=== PATIENT | female | born 1955 | race Caucasian/White ===

== ENCOUNTER → 2019-11-12 13:17 | Outpatient (CLI) | payer MEDICARE, OTHER, SELFPAY ==
--- NOTE | ~2019-11-12 | MM_ITS ---
EXAMINATION: MM screening [facility] BI w vida HISTORY: Screening mammogram TECHNIQUE: Craniocaudal and mediolateral oblique 3-D tomosynthesis images were obtained and synthetic 2-D images were generated. CAD analysis was submitted and interpreted. COMPARISON: 10/25/2018, 03/22/2016, 01/06/2010 bilateral digital screening mammogram examinations BREAST PARENCHYMAL COMPOSITION: The breasts are almost entirely fatty. FINDINGS: There is no evidence of suspicious mass, calcification, or architectural distortion to sugg est malignancy in either breast. There has been no suspicious interval change. IMPRESSION: 1. No mammographic evidence of malignancy. 2. Recommend routine screening mammography in one year. BI-RADS Category 1: Negative Reviewed, dictated and finalized at location A.
== END ==
PROVIDERS: Visit Provider Physician Assistant
DX: Z12.31 Encounter for screening mammogram for malignant neoplasm of breast (principal)
CPT/HCPCS: 77063; 77067

== ENCOUNTER → 2020-11-19 13:25 | Outpatient (CLI) | payer MEDICARE, OTHER, SELFPAY ==
--- NOTE | ~2020-11-19 | MM_ITS ---
EXAMINATION: MM screening [facility] BI w vida HISTORY: Screening mammogram TECHNIQUE: Craniocaudal and mediolateral oblique 3-D tomosynthesis images were obtained and synthetic 2-D images were generated. CAD analysis was submitted and interpreted. COMPARISON: 11/12/2019, 10/25/2018, 03/22/2016 BREAST PARENCHYMAL COMPOSITION: There are scattered areas of fibroglandular density. FINDINGS: There is no evidence of suspicious mass, calcification, or architectural distortion to sugg est malignancy in either breast. There has been no suspicious interval change. IMPRESSION: 1. No mammographic evidence of malignancy. 2. Recommend routine screening mammography in one year. BI-RADS Category 1: Negative Reviewed, dictated and finalized at location A.
--- NOTE | ~2020-11-19 | DEXA_ITS ---
Bone Density Report Name: Edita Cyr Age: 65 Sex: Female Ethnicity: White Date of : 1955 Indication: osteopenia; height loss; prior fracture; hysterectomy; postmenopausal Referring Provider: Fidelian, Alirio Study: Bone densitometry was performed. Exam Date: November 19, 2020 Accession number: [id number] Bone Density: Region BMD T-score Z-score Classification AP Spine (L1-L4) 0.810 -2.2 -0.2 Osteopenia Femoral Neck (Left) 0.609 -2.2 -0.5 Osteopenia Total Hip (Left) 0.706 -1.9 -0.6 Osteopenia Femoral Neck (Right) 0.610 -2.2 -0.5 Osteopenia Total Hip (Right) 0.689 -2.1 -0.7 Osteopenia Total Hip Mean 0.698 -2.0 -0.7 Osteopenia World Health Organization criteria for BMD impression classify patients as: Normal (T-score at or above -1.0), Osteopenia (T-score between -1.0 and -2.5), or Osteoporosis (T-score at or below -2.5). 10-year Fracture Risk(1): Major Osteoporotic Fracture 18% Hip Fracture 3.4% Reported Risk Factors: [place] (), Neck BMD=0.610, BMI=22.7, previous fracture (1) FRAX(R) Version 3.08. Fracture probability calculated for an untreated patient. Fracture probability may be lower if the patient has received treatment. Previous Exams: Region Exam Age BMD T-score BMD Change BMD Change Date g/cm2 vs Baseline vs Previous AP Spine(L1-L4) 11/19/2020 65 0.810 -2.2 0.007 0.007 03/22/2016 60 0.803 -2.2 Total Hip(Left) 11/19/2020 65 0.706 -1.9 -0.056* -0.056* 03/22/2016 60 0.762 -1.5 Total Hip(Right) 11/19/2020 65 0.689 -2.1 -0.051* -0.051* 03/22/2016 60 0.740 -1.7 *Denotes significance at 95% confidence level, LSC for AP Spine = 0.022 g/cm2, LSC for Total Hip = 0.027 g/cm2 Clinical Information Provided by Patient: Has had a low trauma fracture Has used the following medications: Vitamin D Has the following medical conditions: Hysterectomy Patient maximum height was 64 Menopause Age: 38 Does not regularly consume dairy products Drinks caffeinated beverages Onset of menses at age 13 Number of children 0 Impression: The patient has low bone mass, based on the Total Spine T-score. The patient has an estimated ten-year risk of hip fracture of 3.4% and an estimated ten-year risk of major fracture of 18%, based on the WHO FRAX algorithm. The patient has risk factors, including: previous fracture. The BMD for the Total Hip(Left) decreased, changing by -0.
== END ==
PROVIDERS: PCP Physician Assistant; Visit Provider Physician Assistant
DX: Z12.31 Encounter for screening mammogram for malignant neoplasm of breast (principal); Z78.0 Asymptomatic menopausal state; M85.88 Other specified disorders of bone density and structure, other site; M85.852 Other specified disorders of bone density and structure, left thigh; M85.851 Other specified disorders of bone density and structure, right thigh
CPT/HCPCS: 77063; 77067; 77080

== ENCOUNTER → 2021-03-23 02:05 | Outpatient (CLI) | payer MEDICARE, OTHER, SELFPAY ==
[2021-03-24 02:21] LABS: SARS-CoV-2 RNA PCR Negative
== END ==
PROVIDERS: PCP Physician Assistant; Visit Provider Physician Assistant
DX: J01.90 Acute sinusitis, unspecified (principal); Z20.822 Contact with and (suspected) exposure to COVID-19
CPT/HCPCS: C9803; U0003; U0005

== ENCOUNTER → 2021-09-05 15:33 | Outpatient (CLI) | payer MEDICARE, OTHER, SELFPAY ==
--- NOTE | ~2021-09-05 | XR_ITS ---
EXAMINATION: XR chest 2V Exam Date/Time: 09/05/2021 15:52 CDT HISTORY: Cough Comparison: 03/31/2018. RESULT: Lines, tubes, and devices: None. Lungs and pleura: Clear. Cardiomediastinal silhouette: Stable cardiomediastinal silhouette. Other: No acute osseous or upper abdominal finding. IMPRESSION: No acute cardiopulmonary process. Reviewed, dictated and finalized at location K.
== END ==
PROVIDERS: PCP Physician Assistant; Visit Provider Physician Assistant
DX: R05.1 Acute cough (principal)
CPT/HCPCS: 71046

== ENCOUNTER → 2022-02-09 12:11 | Outpatient (CLI) | payer MEDICARE, OTHER, SELFPAY ==
--- NOTE | ~2022-02-09 | MM_ITS ---
EXAMINATION: MM screening [facility] BI w vida HISTORY: Screening TECHNIQUE: Craniocaudal and mediolateral oblique 3-D tomosynthesis images were obtained and synthetic 2-D images were generated. CAD analysis was submitted and interpreted. COMPARISON: Comparison to multiple prior studies sequentially, with oldest reviewed study dated 02/24. BREAST PARENCHYMAL COMPOSITION: There are scattered areas of fibroglandular density. FINDINGS: There is no evidence of suspicious mass, calcification, or architectural distortion to sugg est malignancy in either breast. There has been no suspicious interval change. IMPRESSION: 1. No mammographic evidence of malignancy. 2. Recommend routine screening mammography in one year. BI-RADS Category 1: Negative Reviewed, dictated and finalized at location A. TIC TILE LAYER
== END ==
PROVIDERS: PCP Physician Assistant; Visit Provider Physician Assistant
DX: Z12.31 Encounter for screening mammogram for malignant neoplasm of breast (principal)
CPT/HCPCS: 77063; 77067

== ENCOUNTER 2023-01-03 03:20 | Day surgery (SDC) | payer MEDICARE, OTHER, SELFPAY ==
[2022-10-04 09:04] VITALS: BMI 25.0
--- NOTE | 2022-10-04 10:54 | PC.NURSE ---
Patient informed us a cardiac event monitor was placed 10/03/[address] Degroot office. Anesthesia wants the event monitor completed and resulted prior to doing procedure, pt. called and was rescheduled to 11/13/2022. Dr. Garcia office notified
[2022-12-22 09:27] VITALS: BMI 25.0
--- NOTE | 2023-01-02 16:51 | PM.HPGS ---
History of Present Illness History of Present Illness Consent: Risks, benefits, and alternatives have been discussed and questions answered. Patient agrees to proceed with procedure. Chief complaint: dysphagia Narrative: Edita Cyr is a 67 year old female referred for EGD due to dysphagia. For several months she has had difficulty swallowing anything with bread and meat. She must cut it into small pieces. Otherwise the gets caught in her upper substernal area. If she tries to drink water to wash it down, the water may shoot back out. She has had no weight loss. She has had problems with acid reflux over the years. She had been on pantoprazole but a physician told her it was not good for her to stay on it. She currently is using famotidine. Occasionally night she will have regurgitation up into her throat. Review of Systems Review of Systems: All systems reviewed & are unremarkable except as noted in HPI and below PMFSH Family History Family History Mother Family history of lung cancer, Onset Age: 54 Father Acute myocardial infarction, Onset Age: 57 Social History Social History Smoking status: Former smoker Tobacco type: cigarettes Alcohol intake: current Alcohol use details: occasional wine Substance use type: does not use Living arrangements: with family Spiritual care concerns: No Meds Home Medications and Allergies Home Medications Medication Instructions Recorded Confirmed Type famotidine 40 mg tablet (Pepcid) 40 mg PO DAILY 03/27/19 12/22/22 History metoprolol succinate 25 mg 12.5 mg PO DAILY #45 tabs 07/13/22 01/03/23 Rx tablet,extended release 24 hr losartan 50 mg tablet 25 mg PO DAILY 12/22/22 12/22/22 History Allergies Allergy/AdvReac Type Severity Reaction Status Date / Time morphine Allergy Intermediate hives Verified 01/03/23 09:38 Exam Const: General: alert Orientation/consciousness: patient oriented x3 Resp: Auscultation: clear to auscultation bilaterally Cardio: Rhythm: regular rhythm GI: GI Palp: Yes Soft to palpation and No Tenderness to palpation present (GI) Neuro: General: patient oriented x3 Assessment and Plan Assessment and plan (1) Dysphagia: Code(s): R13.10 - Dysphagia, unspecified Status: Acute Assessment and Plan: EGD with possible biopsy or dilatation or cautery.
[2023-01-03 09:39] VITALS: BP 127/90; PULSE 75; RESP 16; TEMP 36.3; O2SAT 97; BMI 25.4
[2023-01-03] MEDS: LACTATED RINGERS 1,000 ML 150 ML IV CONT (09:53)
--- NOTE | 2023-01-03 10:22 | WPDANESEPPF ---
Anes - Initial Pre Proc Eval Procedure: Operation Date: 01/03/23 11:00 Proposed Procedures p Esophagogastroduodenoscopy - Jarad Staley MD Date/Time: 01/03/23 10:22 Surgeon: Jarad Staley MD Pre Op Diagnosis: dysphagia Patient Data Age: 67 Gender: F Height: 1.68 m Weight: 71.6 kg Last Vital Signs Temp 97.3 F L 01/03/23 09:39 Pulse 75 01/03/23 09:39 Resp 16 01/03/23 09:39 BP 127/90 01/03/23 09:39 Pulse Ox 97 01/03/23 09:39 O2 Del Method Room Air 01/03/23 09:39 Allergies Allergy/AdvReac Type Severity Reaction Status Date / Time morphine Allergy Intermediate hives Verified 01/03/23 09:38 Home Medications Medication Instructions Recorded Confirmed Type famotidine 40 mg tablet (Pepcid) 40 mg PO DAILY 03/27/19 12/22/22 History metoprolol succinate 25 mg 12.5 mg PO DAILY #45 tabs 07/13/22 01/03/23 Rx tablet,extended release 24 hr losartan 50 mg tablet 25 mg PO DAILY 12/22/22 12/22/22 History Patient hx anesthesia problems: none Family hx anesthesia problems: none Results Review: All pre-operative results and documents have been reviewed as part of the pre-operative evaluation. [facility] Family History Family History Mother Family history of lung cancer, Onset Age: 54 Father Acute myocardial infarction, Onset Age: 57 Social History Social History Smoking status: Former smoker Tobacco type: cigarettes Alcohol intake: current Alcohol use details: occasional wine Substance use type: does not use Living arrangements: with family Spiritual care concerns: No Anes - Eval Final PreProcedure Day of Procedure 01/03/23 10:22 Patient weight: normal Heart: regular rate and rhythm Lungs: clear to auscultation Airway: Mallampati scale class II Neurological: alert and oriented Last oral intake: >/= 8 hours ASA classification: III Emergent: no Anesthetic plan: proceed Anesthesia type and monitoring: general GIVS and standard monitoring Results Review: All pre-operative results and documents have been reviewed as part of the pre-operative evaluation. Informed Consent: The patient's anesthetic plan and its attendant risks and benefits were discussed with the patient/family/POA. Questions were solicited and answers provided to the satisfaction of the patient/family/POA.
[2023-01-03 11:17] VITALS: BP 98/52; PULSE 71; RESP 15; O2SAT 99
[2023-01-03 11:27] VITALS: BP 121/64; PULSE 74; RESP 20; O2SAT 99
[2023-01-03 11:37] VITALS: BP 128/67; PULSE 70; RESP 19; O2SAT 99
== END 2023-01-03 11:43 | disposition home or self-care (01) ==
PROVIDERS: PCP Physician Assistant; Visit Provider Internal Medicine Gastroenterology
PROC: 0DJ08ZZ Inspection of Upper Intestinal Tract, Via Natural or Artificial Opening Endoscopic (ICD-10-PCS; CPT 43235; principal; 2023-01-03 11:00)
DX: K22.2 Esophageal obstruction (principal); K44.9 Diaphragmatic hernia without obstruction or gangrene; K31.89 Other diseases of stomach and duodenum; Z87.891 Personal history of nicotine dependence; Z80.1 Family history of malignant neoplasm of trachea, bronchus and lung
CPT/HCPCS: 43249; 43239; 87081; 88305; C1726; J2704; J7120

== ENCOUNTER 2023-01-15 08:36 | Outpatient (CLI) | payer MEDICARE, OTHER, SELFPAY ==
--- NOTE | ~2023-01-15 | XR_ITS ---
EXAMINATION: XR UGIAC w barium swallow DATE: 01/15/2023 09:26 INDICATION: Difficulty swallowing post endoscopy with esophageal dilation 1 week prior. Acid reflux. TECHNIQUE: The patient drank thick barium, gas-producing crystals, and thin barium. Fluoroscopic spot radiographs of the hypopharynx, esophagus, stomach and proximal small bowel were obtained. Fluorosco py exposure time was 2.3 minutes. A total of 1199 fluoroscopic images were recorded. COMPARISON: None. FINDINGS: The pharynx is symmetric and without evidence of mass lesion or mucosal irregularity. Also note some contrast coating was seen in the posterior wall of the epiglottis consistent with laryngeal penetrati on without aspiration. The esophagus is normal without mass or stricture. Esophageal motility is norm al. Small sliding-type hiatal hernia with gastroesophageal junction 4 cm above the level of the diaph ragm. No stricture at the gastroesophageal junction which opens to 1.2 x 1.7 cm in diameter on AP and lateral images respectively. There is a single episode of gastroesophageal reflux with provocative m aneuvers. The stomach and proximal small bowel are normal. IMPRESSION: 1. Small sliding-type hiatal hernia with no evident stricture at the gastroesophageal junction. 2. Single episode of gastroesophageal reflux with provocative maneuvers. 2. Small amount of laryngeal penetration without aspiration. Could consider further evaluation with d edicated modified swallow study performed in conjunction with the department of speech pathology. Reviewed, dictated and finalized at location A. IMPRESSION: 1. Small sliding-type hiatal hernia with no evident stricture at the gastroesop hageal junction. 2. Single episode of gastroesophageal reflux with provocative maneuvers. 2. Small amount of laryngeal penetration without aspiration. Could consider fur ther evaluation with dedicated modified swallow study performed in conjunction with the department of speech pathology.
== END 2023-01-15 08:37 | disposition home or self-care (01) ==
LOC: ANHIMG 08:40
PROVIDERS: PCP Physician Assistant; Visit Provider Internal Medicine Gastroenterology
DX: R13.10 Dysphagia, unspecified (principal); K44.9 Diaphragmatic hernia without obstruction or gangrene; K21.9 Gastro-esophageal reflux disease without esophagitis
CPT/HCPCS: 74246

== ENCOUNTER → 2023-02-12 10:43 | Outpatient (CLI) | payer MEDICARE, SELFPAY ==
--- NOTE | ~2023-02-12 | DEXA_ITS ---
Bone Density Report Name: DWIGHT BRAUN Age: 67 Sex: Female Ethnicity: White Date of : 1955 Indication: osteopenia; height loss; prior fracture; hysterectomy; postmenopausal Referring Provider: [facility], CHIVO Study: Bone densitometry was performed. Exam Date: February 12, 2023 Accession number: [id number] Bone Density: Region BMD T-score Z-score Classification AP Spine (L1-L4) 0.842 -1.9 0.2 Osteopenia Femoral Neck (Left) 0.598 -2.3 -0.5 Osteopenia Total Hip (Left) 0.746 -1.6 -0.1 Osteopenia Femoral Neck (Right) 0.595 -2.3 -0.5 Osteopenia Total Hip (Right) 0.725 -1.8 -0.3 Osteopenia Total Hip Mean 0.736 -1.7 -0.2 Osteopenia World Health Organization criteria for BMD impression classify patients as: Normal (T-score at or above -1.0), Osteopenia (T-score between -1.0 and -2.5), or Osteoporosis (T-score at or below -2.5). 10-year Fracture Risk(1): Major Osteoporotic Fracture 20% Hip Fracture 4.3% Reported Risk Factors: [place] (), Neck BMD=0.595, BMI=25.9, previous fracture (1) FRAX(R) Version 3.08. Fracture probability calculated for an untreated patient. Fracture probability may be lower if the patient has received treatment. Previous Exams: Region Exam Age BMD T-score BMD Change BMD Change Date g/cm2 vs Baseline vs Previous AP Spine(L1-L4) 02/12/2023 67 0.842 -1.9 0.039* 0.031* 11/19/2020 65 0.810 -2.2 0.007 0.007 03/22/2016 60 0.803 -2.2 Total Hip(Left) 02/12/2023 67 0.746 -1.6 -0.016 0.040* 11/19/2020 65 0.706 -1.9 -0.056* -0.056* 03/22/2016 60 0.762 -1.5 Total Hip(Right) 02/12/2023 67 0.725 -1.8 -0.015 0.036* 11/19/2020 65 0.689 -2.1 -0.051* -0.051* 03/22/2016 60 0.740 -1.7 *Denotes significance at 95% confidence level, LSC for AP Spine = 0.022 g/cm2, LSC for Total Hip = 0.027 g/cm2 Clinical Information Provided by Patient: Has had a low trauma fracture Has used the following medications: Calcium, vit D included with Calcium Has the following medical conditions: Hysterectomy Patient maximum height was 66 Menopause Age: 41 Does not regularly consume dairy products Drinks caffeinated beverages Onset of menses at age 13 Number of children 0 Impression: The patient has low bone mass, based on the Left Femoral Neck T-score. The patient has an estimated ten-year r
--- NOTE | ~2023-02-12 | MM_ITS ---
EXAMINATION: MM screening [facility] BI w vida HISTORY: Screening mammogram TECHNIQUE: Craniocaudal and mediolateral oblique 3-D tomosynthesis images were obtained and synthetic 2-D images were generated. CAD analysis was submitted and interpreted. COMPARISON: 02/09/2022, 11/19/2020, 11/12/2019 bilateral screening mammogram examinations BREAST PARENCHYMAL COMPOSITION: The breasts are almost entirely fatty. FINDINGS: There is no evidence of suspicious mass, calcification, or architectural distortion to sugg est malignancy in either breast. There has been no suspicious interval change. IMPRESSION: 1. No mammographic evidence of malignancy. 2. Recommend routine screening mammography in one year. BI-RADS Category 1: Negative Reviewed, dictated and finalized at location A. LINE SUPERVISOR
== END ==
PROVIDERS: PCP Physician Assistant; Visit Provider Physician Assistant
DX: Z12.31 Encounter for screening mammogram for malignant neoplasm of breast (principal); Z78.0 Asymptomatic menopausal state; M85.88 Other specified disorders of bone density and structure, other site; M85.852 Other specified disorders of bone density and structure, left thigh; M85.851 Other specified disorders of bone density and structure, right thigh
CPT/HCPCS: 77063; 77067; 77080

== ENCOUNTER 2023-09-12 10:40 | Outpatient (CLI) | payer MEDICARE, OTHER, SELFPAY ==
--- NOTE | ~2023-09-12 | XR_ITS ---
EXAMINATION: [id number] DATE: 09/12/2023 11:06 INDICATION: Pleurodynia with lateral left rib pain TECHNIQUE: A frontal inspiratory view of the chest and 3 views of the left ribs were obtained. COMPARISON: Chest radiograph dated 09/05/2021 FINDINGS: No rib fractures identified. Chronic biapical pleural-parenchymal scarring. Unchanged left paracardia l fat pad along the left heart border. No new airspace opacities, pulmonary edema, pleural effusion o r pneumothorax. Heart size is normal. IMPRESSION: 1. No rib fracture or acute cardiopulmonary disease. Reviewed, dictated and finalized at location A.
== END 2023-09-12 10:41 ==
PROVIDERS: PCP Physician Assistant; Visit Provider Physician Assistant
DX: R07.81 Pleurodynia (principal)
CPT/HCPCS: 71101

== ENCOUNTER 2023-10-18 13:05 | Outpatient (CLI) | payer MEDICARE, OTHER, SELFPAY ==
[2023-10-18 13:46] LABS: Basophils Percent Auto 0.7 % (0.2-1.2); Eosinophils Absolute Auto 0.1 K/mm3 (0-0.3); Eosinophils Percent Auto 1.5 % (0-4.4); Hematocrit 38.5 % (37.0-47.0); Hemoglobin 12.4 g/dL (12.0-15.0); Immature Granulocyte Absolute 0.01 K/mm3 (0.00-0.031); Immature Granulocyte Percent A 0.2 % (0-0.5); Lymphocytes Absolute Auto 2.23 K/mm3 (0.9-3.2); Lymphocytes Percent Auto 37.4 % (18.3-44.2); Mean Corpuscular HGB Conc 32.2 g/dl (32-36); Mean Corpuscular Hemoglobin 29.7 pg (26-34); Mean Corpuscular Volume 92.3 fl (80-100); Mean Platelet Volume 9.8 fl (7.4-10.4); Monocytes Absolute Auto 0.5 K/mm3 (0.1-0.6); Monocytes Percent Auto 8.9 % (2.6-8.5); Neutrophils Absolute Auto 3.1 K/mm3 (1.3-6.7); Neutrophils Percent Auto 51.3 % (45.5-73.1); Platelet Count Result 287 k/mm3 (150-375); Red Blood Count 4.17 M/mm3 (4.2-5.4); Red Cell Distribution Width 14.1 % (11.5-14.5)
[2023-10-18 13:58] LABS: Alanine Aminotransferase 12 U/L (6-35); Albumin Level 4.4 g/dL (3.5-5.1); Alkaline Phosphatase 57 U/L (38-126); Anion Gap 8 mmol/L (4-12); Aspartate Amino Transferase 25 U/L (14-36); Bilirubin,Total 0.6 mg/dL (0.2-1.3); Blood Urea Nitrogen 13 mg/dL (7-17); Calcium 8.9 mg/dL (8.4-10.2); Carbon Dioxide 30 mmol/L (22-30); Chloride 100 mmol/L (98-107); Cholesterol 191 mg/dL (0-200); Estimated Glomerular Filt Rate 55; Glucose 87 mg/dL (65-110); HDL Direct 63 mg/dL; Potassium 4.7 mmol/L (3.4-5.0); Sodium 138 mmol/L (137-145); Triglycerides 89 mg/dL (<150)
[2023-10-18 14:09] LABS: LDL Cholesterol Direct 89 mg/dL
[2023-10-18 14:14] LABS: Free T4 Free Thyroxine 0.82 ng/mL (0.78-2.19)
[2023-10-18 14:29] LABS: Thyroid Stimulating Hormone 0.591 uIU/mL (0.465-4.680)
[2023-10-18 14:54] LABS: Hemoglobin A1C 5.5 % (<5.7)
== END 2023-10-18 13:06 | disposition home or self-care (01) ==
LOC: ANHLAB 13:11
PROVIDERS: PCP Physician Assistant; Visit Provider Physician Assistant
DX: R73.09 Other abnormal glucose (principal); Z79.899 Other long term (current) drug therapy; Z13.220 Encounter for screening for lipoid disorders
CPT/HCPCS: 36415; 80048; 80061; 80076; 83036; 84439; 84443; 85025

== ENCOUNTER 2024-01-31 00:55 | Day surgery (SDC) | payer MEDICARE, OTHER, SELFPAY ==
[2024-01-18 14:21] VITALS: BMI 24.7
[2024-01-31 10:15] VITALS: BP 120/74; PULSE 79; RESP 18; TEMP 36.1; O2SAT 98; BMI 24.6
[2024-01-31] MEDS: LACTATED RINGERS 1,000 ML 150 ML IV CONT (10:25)
--- NOTE | 2024-01-31 10:57 | P.PNAN_ITS ---
Anes - Initial Pre Proc Eval Procedure: Operation Date: 01/31/24 11:30 Proposed Procedures p Esophagogastroduodenoscopy - William Nascimento MD Date/Time: 01/31/24 10:57 Surgeon: William Nascimento MD Pre Op Diagnosis: dysphagia Patient Data Age: 68 Gender: F Height: 1.68 m Weight: 69.2 kg Last Vital Signs Temp 36.1 C L 01/31/24 10:15 Pulse 79 01/31/24 10:15 Resp 18 01/31/24 10:15 BP 120/74 01/31/24 10:15 Pulse Ox 98 01/31/24 10:15 O2 Del Method Room Air 01/31/24 10:15 Allergies Allergy/AdvReac Type Severity Reaction Status Date / Time morphine Allergy Intermediate hives Verified 01/31/24 10:13 Home Medications Medication Instructions Recorded Confirmed Type gabapentin 300 mg capsule 300 mg PO DAILY 09/14/23 01/31/24 History losartan 25 mg tablet 25 mg PO DAILY 09/14/23 01/31/24 History metoprolol succinate 25 mg See Rx Instructions .Route 10/08/23 01/31/24 Rx tablet,extended release 24 hr .COMPLEX #45 tabs omeprazole 20 mg capsule,delayed 20 mg PO BID 01/18/24 01/31/24 History release Patient hx anesthesia problems: none Family hx anesthesia problems: none Results Review: All pre-operative results and documents have been reviewed as part of the pre- operative evaluation. [facility] Family History Family History Mother Family history of lung cancer, Onset Age: 54 Father Acute myocardial infarction, Onset Age: 57 Social History Social History Smoking status: Former smoker Tobacco type: cigarettes Alcohol intake: current Alcohol use details: occasional wine Substance use type: does not use Do You Feel Safe in your Home?: Yes Lack of Transportation: No Lack of Food: Never True Current Housing: I Have Housing Concerned About Future Housing: No Difficulty Paying Gas/Electric Bills: No Difficulty Paying for Meds: No Currently Unemployed: No Education: High School Diploma/GED Difficulty w/ Childcare or Family Care: No Living arrangements: with family Spiritual care concerns: No Anes - Eval Final PreProcedure Day of Procedure 01/31/24 10:57 Patient weight: normal Heart: regular rate and rhythm Lungs: clear to auscultation Airway: Mallampati scale class II Neurological: alert and oriented Last oral intake: >/= 8 hours ASA classification: II Emergent: no Anesthetic plan: proceed Anesthesia type and monitoring: general GIVS and standard monitoring Results Review: All pre-operative results and documents have been reviewed as part of the pre-operative evaluation. Informed Consent: The patient's anesthetic plan and its attendant risks and benefits were discussed with the patient/family/POA. Questions were solicited and answers provided to the satisfaction of the patient/family/POA.
--- NOTE | 2024-01-31 10:58 | PM.IMHP ---
H&P: HPI History of Present Illness Date/Time: 01/31/24 10:58 Chief Complaint: Dysphagia Narrative: this patient has been suffering from intermittent dysphagia for several years. In December last year she underwent EGD Where a Schatzki ring was found and dilated with a balloon 18-20 mm. She did well until 3 months ago when she started to have dysphagia again, exclusively with solid foods. She is here for EGD. Review of Systems Review of Systems: All systems reviewed & are unremarkable except as noted in HPI and below PMFSH Family History Family History Mother Family history of lung cancer, Onset Age: 54 Father Acute myocardial infarction, Onset Age: 57 Social History Social History Smoking status: Former smoker Tobacco type: cigarettes Alcohol intake: current Alcohol use details: occasional wine Substance use type: does not use Do You Feel Safe in your Home?: Yes Lack of Transportation: No Lack of Food: Never True Current Housing: I Have Housing Concerned About Future Housing: No Difficulty Paying Gas/Electric Bills: No Difficulty Paying for Meds: No Currently Unemployed: No Education: High School Diploma/GED Difficulty w/ Childcare or Family Care: No Living arrangements: with family Spiritual care concerns: No Meds Home Medications and Allergies Home Medications Medication Instructions Recorded Confirmed Type gabapentin 300 mg capsule 300 mg PO DAILY 09/14/23 01/31/24 History losartan 25 mg tablet 25 mg PO DAILY 09/14/23 01/31/24 History metoprolol succinate 25 mg See Rx Instructions .Route 10/08/23 01/31/24 Rx tablet,extended release 24 hr .COMPLEX #45 tabs omeprazole 20 mg capsule,delayed 20 mg PO BID 01/18/24 01/31/24 History release Allergies Allergy/AdvReac Type Severity Reaction Status Date / Time morphine Allergy Intermediate hives Verified 01/31/24 10:13 Vital Signs Vital Signs - 24 hr 01/31/24 10:15 Temperature 97 F L Pulse Rate 79 Respiratory Rate 18 Blood Pressure 120/74 Pulse Oximetry 98 Oxygen Delivery Room Air Exam Const: General: cooperative and healthy appearing Resp: Effort & Inspection: normal respiratory effort and able to speak in complete sentences Auscultation: clear to auscultation bilaterally Cardio: Rate: regular rate Rhythm: regular rhythm GI: Inspection: normal to inspection GI Palp: No No hepatosplenomegaly present Auscultation: normal bowel sounds Rectal Exam: deferred Skin: General skin exam: normal color Psych: Appearance: grossly normal Mental Status: mental status grossly normal Assessment and Plan Assessment and plan (1) Dysphagia: Code(s): R13.10 - Dysphagia, unspecified Status: Acute Assessment and Plan: The patient is deemed a good candidate for the procedure. Consent signed. Will proceed. If a ring is found, will dilate it with a Arnett dilator.
[2024-01-31] MEDS: BENZOCAINE (*SP) 60 ML SPRAY CAN (HURRICAINE) 1 SPRAY MUCOUS MEM (11:06)
[2024-01-31 11:20] VITALS: BP 97/87; PULSE 73; RESP 20; O2SAT 97
[2024-01-31 11:30] VITALS: BP 96/54; PULSE 72; RESP 14; O2SAT 96
[2024-01-31 11:40] VITALS: BP 109/61; PULSE 62; RESP 13; O2SAT 96
== END 2024-01-31 12:08 | disposition home or self-care (01) ==
PROVIDERS: PCP Physician Assistant; Visit Provider Internal Medicine Gastroenterology
PROC: 0DJ08ZZ Inspection of Upper Intestinal Tract, Via Natural or Artificial Opening Endoscopic (ICD-10-PCS; CPT 43235; principal; 2024-01-31 11:30)
DX: K21.00 Gastro-esophageal reflux disease with esophagitis, without bleeding (principal); K29.30 Chronic superficial gastritis without bleeding; K44.9 Diaphragmatic hernia without obstruction or gangrene; Z87.891 Personal history of nicotine dependence; Z80.1 Family history of malignant neoplasm of trachea, bronchus and lung; Z82.49 Family history of ischemic heart disease and other diseases of the circulatory system
CPT/HCPCS: 43239; 88305; J2003; J2704; J7120

== ENCOUNTER 2024-02-15 10:42 | Outpatient (CLI) | payer MEDICARE, OTHER, SELFPAY ==
--- NOTE | ~2024-02-15 | MM_ITS ---
EXAMINATION: MM screening [facility] BI w vida HISTORY: Screening mammogram, family history of breast cancer in her sister. TECHNIQUE: Craniocaudal and mediolateral oblique 3-D tomosynthesis images were obtained and synthetic 2-D images were generated. CAD analysis was submitted and interpreted. COMPARISON: 02/12/2023, 02/09/2022, 11/19/2020 BREAST PARENCHYMAL COMPOSITION:Not Dense. There are scattered areas of fibroglandular density. FINDINGS: No suspicious mass, calcification, or architectural distortion are identified in either maricruz ast to suggest malignancy. There has been no suspicious interval change. IMPRESSION: No mammographic evidence of malignancy. Recommend routine screening mammography in one year. BI-RADS Category 1: Negative Reviewed, dictated and finalized at location . GE PUMP OPERATOR
== END 2024-02-15 10:43 | disposition home or self-care (01) ==
LOC: MICIMG 10:43
PROVIDERS: PCP Physician Assistant; Visit Provider Physician Assistant
DX: Z12.31 Encounter for screening mammogram for malignant neoplasm of breast (principal)
CPT/HCPCS: 77063; 77067

== ENCOUNTER 2024-03-17 06:56 | Outpatient (CLI) | payer MEDICARE, OTHER, SELFPAY ==
--- NOTE | ~2024-03-17 | XR_ITS ---
EXAMINATION: XR barium swallow modified DATE: 03/17/2024 08:25 INDICATION: Dysphagia. TECHNIQUE: The patient was given barium-containing material of multiple consistencies to swallow by t he speech pathologist while I performed fluoroscopy. Fluoroscopy exposure time was 0.7 minutes. The n umber of fluoroscopy images saved to the PACS was 1. Dose-area product was 0.437 Gy-cm^2. FINDINGS: The oral stage, pharyngeal stage, and cervical/esophageal stage of the swallow are normal. IMPRESSION: 1. Normal modified barium swallow. 2. Please refer to the speech therapy report for recommendations. Reviewed, dictated and finalized at location [] [facility]
--- NOTE | 2024-03-17 09:00 | REHSTMBS ---
Assessment and note entered by Kiana Piper, DIRECTOR INSTRUMENTATION Modified Barium Swallow Evaluation ST Clinical Summary MODIFIED BARIUM SWALLOW This patient was seen for a Modified Barium Swallow study at the request of her physician. Patient was seen for a GI consult on 02/[address] Brito who reported patient has a past medical surgical history of dysphagia, Schatzki's ring, and hypertension. The following notes were made: The patient was last seen by Dr. Nascimento on 2023 for an EGD. She reports that she has been having swallowing difficulty for months prior to her EGD in December 2022. She states that every morning there for a while she would get a phlegm like sensation that would come up and once it came up she was good. She states that if she consumes dairy products the mucous and post nasal drainage is worse. She is on omeprazole daily which she feels in causing adverse side effects for her. She is normally only having reflux symptoms if she eats known GERD triggering foods. When breakthrough reflux occurs she typically uses p.r. n. famotidine or Gaviscon and symptoms resolved. She denies any frequent abdominal pain, nausea, vomiting, bloating, odynophagia, regurgitation, early satiety, unexplained weight loss, or appetite loss. She is having daily bowel movements that are formed and non urgent. Denies diarrhea, constipation, hematochezia, or melena. She denies any NSAID, aspirin, or anticoagulant use. She is a rare social drinker, nonsmoker, and denies marijuana use. Family history negative for CRC or IBD. Today the patient reports same complaints. Patient was viewed in the lateral position to the level of C5/C6. Patient was presented with thin liquid contrast medium per cup and per straw, pudding mixed with semi-solid contrast medium, and then francisco j cracker piece and fruit cocktail pieces, both coated with the semi-solid mixture. She exhibited adequate mastication and manipulation, and quick swallows with no evidence of penetration/aspiration and no significant residue. Results indicate patient's swallowing skills are within normal limits. She was instructed in the use of head flexion to prevent food/liquid/pills. She voiced understanding. She was also instructed to follow any and all guidelines concerning reflux given to her by her physician to prevent reflux from entering the throat and/or airway. She again voiced understanding. Thank you for this referral.
--- OUTSIDE RECORDS SUMMARY | 2024-03-24 06:36 | XMS_ITS | Data Portability ---
Author Organization [facility] ALYSHAPiedad Address [address] [facility] [place] [address] Care Team Providers Care Sound Effects Supervisor Name Role Phone BAY EUBANKSIE Primary Care Provider Unavailab le Assessment Encounter Date Assessment Date Assessment LastModified by Organization Details LastModified Time 07/18/2023 07/18/2023 Mammogram scheduled. Not available 07/18/2023 15:26:16 Plan of Treatment Reminders Order Date Submit Date Provider Last Modified By Organization Details Last Modified Time Details Appointments None recorded. Lab CBC w/ auto diff 2023 024 [facility] (Lab), [address] [place] [address], [address], 4 14:50:51 hepatic function panel, serum 2023 024 [facility] (Lab), [address] [place] [address], [address], 4 14:51:13 BMP, serum or plasma [address] [place] [address] (Lab), [address] [place] [address], [address], 4 14:52:13 TSH + free T4, serum 2023 024 [facility] (Lab), [address] [place] [address], [address], 4 14:51:49 lipid panel, serum 2023 024 [facility] (Lab), [address], [place], [address], 4 14:51:31 HbA1c (hemoglobi n A1c), blood 2023 [facility] (Lab), [address], [place], [address], 14:50:42 noninvasiv e colorectal cancer DNA + occult blood screening, QL, stool 2023 [facility] (Cologuard Orders Only), [address], [address], [place], [address], 18:14:04 Referral None recorded. Procedures None recorded. Surgeries None recorded. Imaging MAMMO, screening, digital, bilateral 2023 [facility], [address], [address], [place], [address], 4 12:53:05 Medication Orders amoxicilli n 875 mg tablet 2023 [id number], [address], [place], [place], [id number], 13:15:41 Patient TargetsNo targets recorded. Patient Instructions Encounter Date Encounter Id Patient Instructions Last Modified By Organization Details Last Modified Time 11/22/2023 [id number] A healthy lifestyle: care instructions Not available 11/22/2023 15:46:33 Medicare Wellnes s Preventive Checklist Not available 11/22/2023 15:46:33 Reason for Referral None Reported. Results Created Date Observation Date Name Description Value Unit Range Abnormal Flag Note LastModifiedBy Organization Detail LastModifiedTime 08/06/19 24 08/06/2023 COLOG UARD cologuard result reportable Negati ve negati ve normal NEGAT KWESI TEST RESUL T. A negat kwesi Colog uard resul t indic ates a low likel ihood that a color ectal cance r (CRC) or advan angela adeno ma (dominick omato us polyp s with more advan angela pre-m align ant featu res) is prese nt. The [facility] that a perso n with a negat kwesi Colog uard test has a color ectal cance r is less than 1 in 1500 (nega tive predi ctive value >99.9 %) or has an advan angela adeno ma is less than 5.3% (nega tive predi ctive value 94.7% ). These data are based on a prosp ectiv e cross -sect ional study of ,00 0 indiv idual s at [place] risk for color ectal cance r who were scree manuel with both Colog uard and colon oscop y. (Joseph Toussaint et al, N Engl J Med 2014; 370(1 4):12 86-12 97) The seymour l value (refe rence range ) for this assay is negat kwesi. COLOG UARD RE-SC REEENEIDA NG RECOM MENDA TION: Perio dic color ectal cance r scree isabelle is an impor tant part of preve ntive healt hcare for asymp tomat ic indiv idual s at [place] risk for color ectal cance r. Follo wing a negat kwesi Colog uard resul t, the Ameri can Cance r Socie ty and U.S. Multi -Soci ety Task Force scree isabelle guide lines recom mend a Colog uard re-sc reeni ng inter eva of 3 years . Refer ences : Ameri can Cance r Socie ty Guide line for Color ectal Cance r Scree isabelle: https ://kayleigh w.can cer.o rg/ca ncer/ colon -rect al-ca ncer/ detec tion- diagn osis- stagi ng/ac s-rec ommen datio ns.ht ml.; Rosales SIMEON, Esteban SORTO, Kristin FerrellK, Color ectal Cance r Scree isabelle: Recom menda tions for Physi cians and Patie nts from the U.S. Multi -Soci ety Task Force on Color ectal Cance r Hari walton , Am Mariaelena lemusnte rolog y 2017; 112:1 016-1 030. TEST DESCR IPTIO N: Ollie site algor ithmi c mohsen sis of stool DNA-b derrek vickers with hemog lobin immun oassa y. Quant itati ve value s of indiv idual bioma rkers are not repor table and are not assoc iated with indiv idual bioma rker resul t refer ence range s. Colog uard is inten ded for color ectal cance r scree isabelle of adult s of eithe r sex, 45 years or older , who are at [facility] for color ectal cance r (CRC) . Colog uard has been appro ana for use by the U.S. FDA. The perfo rmanc e of Colog uard was estab lishe d in a cross secti onal study of [facility] adult s aged 50-84 . Colog uard perfo rmanc e in patie nts ages 45 to 49 years was estim ated by sub-g roup mohsen sis of near- age group s. Colon oscop ies perfo rmed for a posit kwesi resul t may find as the most clini amy signi fican t lesio n: color ectal cance r [4.0% ], advan angela adeno ma (incl uding sessi le luis angel naomi polyp s great er than or equal to 1cm diame ter) [20%] or non- advan angela adeno ma [31%] ; or no color ectal neopl vin [45%] . These estim ates are deriv ed from a prosp ectiv e cross -sect ional scree isabelle study of 10,00 0 indiv idual s at [facility] risk for color ectal cance r who were scree manuel with both Colog uard and colon oscop y. (Joseph Delgado al, N Engl J Med 2014; 370(1 4):12 86-12 97.) Colog uard may produ ce a false negat kwesi or false posit kwesi resul t (no color ectal cance r or preca ncero us polyp prese nt at colon oscop y follo w up). A negat kwesi Colog uard test resul t does not guara ntee the absen ce of CRC or advan angela adeno ma (pre- cance r). The curre nt Colog uard scree isabelle inter eva is every 3 years . (Amer ican Cance r Socie ty and U.S. Multi -Soci ety Task Force ). Colog uard perfo rmanc e data in a 10,00 0 patie nt pivot al study using colon oscop y as the refer ence metho d can be acces sed at the follo wing locat ion: www.e xactl abs.c om/re sults . Addit ional descr iptio n of the Colog uard test proce ss, warni ngs and preca ution s can be found at www.c ologu ravin.c om. Not Available [facility] (Cologuard Orders Only) [address], [place], [address], 08/10/2023 18:14:03 09/13/19 24 09/12/2023 XR, ribs, unila teral , w/ PA chest No observ ation record ed. [facility] [address], [place], [address], 09/14/2023 12:46:25 02/15/20 24 02/15/2024 MAMMO , scree isabelle, digit al, bilat eral No observ ation record ed. [email or web address] [address], [place], [address], 02/18/2024 11:21:30 03/17/20 24 03/17/2024 shelby coffman ow study No observ ation record ed. [facility] [address], [place], [address], 03/20/2024 10:18:36 Result Notes None recorded. Problems Name Problem SNOMED Code Status Onset Date Resolution Date Notes Provider Name and Address Organization Details Recorded Time Benign essential hypertensio n 2575736 Active 2023 WESTLEY Etienne Attn: Harrison g,[address] [facility], [place], [place], [address] [place] [address], [place] - [facility] 4 13:36:52 Gastroesoph ageal reflux disease without esophagitis 720708762 Active 2023 WESTLEY Etienne Attn: Accountin g,[address] [facility], [place], [place], [address] [place] [address], [place] - [facility] 4 13:36:54 History of Schatzkis ring 5055478921900 9103 Active 2023 WESTLEY Etienne Attn: Harrison g,[address] [facility], [place], [place], [address] [place] [address], [place] - [facility] 4 13:36:55 Blood glucose outside reference range 159616635 Active 2023 WESTLEY Etienne Attn: Harrison cancino,[address] [facility], [place], [place], [address] [place] [address], [place] - [facility] 4 13:36:56 Long-term drug therapy Active 2023 WESTLEY Etienne Attn: Harrison cancino,[address] [facility], [place], [place], [address] [place] [address], [place] [facility] 4 13:36:58 Body mass index 25-29 - overweight 588855999 Active 2023 WESTLEY Etienne Attn: Harrison g,[address] [place], [place], [address] [place] [address], [place] [facility] 4 10:48:41 Administrat ion of pneumococca l vaccine Active 2023 WESTLEY Etienne Attn: Harrison g,[address] [place], [place], [address] [place] [address], [place] [facility] 4 10:48:41 Overweight 339840167 Active 2023 WESTLEY Etienne Attn: Harrison cancino,[address], [place], [address], [facility] - [facility] 10:48:43 Problem Notes None recorded. Procedures Surgical History Date Name Laterality Status Provider Name and Address Organization Details Recorded Time Appendectomy completed Roberto Deal MA [facility] 07/18/2023 15:42:18 hysterectomy completed Roberto Deal MA [facility] 07/18/2023 15:42:22 Imaging Results Imaging Date Name Status LastModified by Organiz ation Details LastModified Time 09/12/2023 XR, ribs, unilateral, w/ PA chest completed [facility] [address], [place], [address], 09/14/2023 12:46:25 02/15/2024 MAMMO, screening, digital, bilateral completed [email or web address] [address], [place], [address], 02/18/2024 11:21:30 03/17/2024 barium swallow study completed [address], [place], [address], 03/20/2024 10:18:36 Procedure Notes None recorded. Medical Equipment None Reported. Allergies Allergen ID Allergen Name Allergen Category Reaction Reaction Severity Criticality Documentation Date Start Date Code Code System Note Provider Name and Address Organization Details Recorded Time 556953 morphine medicatio n itching moderate low 07/11/2023 7052 RxNorm Julia Mascorro LPN null, [place] - [place] 11:37:35 Medications Name Sig Start Date Stop Date Status Note LastModified by Organization Details LastModified Time losartan 50 mg tablet TAKE 1 TABLET BY MOUTH DAILY active 1\2 tablet every day changed by cardio Not Available Not Available Not Available ketoconaz ole 2 % shampoo APPLY TOPICALL Y TO SCALP THREE TIMES WEEKLY 07/10 completed Not Available Not Available Not Available valacyclo vir 1 gram tablet TAKE 2 TABLETS BY MOUTH EVERY 12 HOURS FOR 1 DAY NEEDED 07/10 completed Not Available Not Available Not Available omeprazol e 40 mg capsule,d elayed release Take 1 capsule every day by oral route. 01/14 completed Not Available Not Available Not Available amoxicill in 875 mg tablet TAKE 1 TABLET BY MOUTH EVERY 12 HOURS 10/14 completed Not Available Not Available Not Available famotidin e 20 mg tablet TAKE 1 TABLET BY MOUTH TWICE DAILY active Not Available Not Available No t Available gabapenti n 300 mg capsule TAKE 1 CAPSULE BY MOUTH EVERY NIGHT AT BEDTIME active Not Available Not Available No t Available omeprazol e 20 mg capsule,d elayed release TAKE ONE CAPSULE BY MOUTH TWICE DAILY WITH MEALS active Not Available Not Available No t Available hydroxyzi ne HCl 25 mg tablet TAKE 1 TABLET BY MOUTH EVERY 8 HOURS NEEDED FOR ITCHING 11/21 completed Not Available Not Available Not Available metoprolo l succinate ER 25 mg tablet,ex tended release 24 hr TAKE 1/2 TABLET BY MOUTH DAILY active Not Available Not Available No t Available betametha sone dipropion ate 0.05 % lotion APPLY TOPICALL Y TO SCALP EVERY NIGHT AT BEDTIME NEEDED FOR FLARES DIRECTED 07/10 completed Not Available Not Available Not Available amoxicill in 875 mg-potass ium clavulana te 125 mg tablet TAKE 1 TABLET BY MOUTH EVERY 12 HOURS 07/17 completed Not Available Not Available Not Available azelaic acid 15 % topical gel APPLY TOPICALL Y TO THE AFFECTED AREA OF FACE EVERY MORNING active Not Available Not Available No t Available Vitals Date Recorded Body weight Respiratory rate Body mass index (BMI) Body height Heart rate Oxygen saturation Oxygen saturation in Arterial blood by Pulse oximetry Systolic blood pressure Diastolic blood pressure Provider Name and Address Organization Details Last Updated DateTime 4 99515.8 2 g 18 /min 27.7 kg/m2 159.39 cm 72 /min 97 % 97 % 130 mm[Hg] 82 mm[Hg] Roberto Deal MA [facility] 15:13:13 Date Recorded Systolic blood pressure Diastolic blood pressure Provider Name and Address Organization Details Last Updated DateTime 07/18/2023 124 mm[Hg] 80 mm[Hg] WESTLEY Etienne Attn: Accounting,[address] [facility], [place], [address], [facility] 07/18/2023 15:31:34 Date Recorded Body height Body mass index (BMI) Body weight Respiratory rate Oxygen saturation Oxygen saturation in Arterial blood by Pulse oximetry Heart rate Systolic blood pressure Diastolic blood pressure Provider Name and Address Organization Details Last Updated DateTime 4 159.39 cm 28 kg/m2 09516.2 9 g 18 /min 96 % 96 % 72 /min 150 mm[Hg] 88 mm[Hg] Roberto Deal MA [facility] 14:36:41 Date Recorded Systolic blood pressure Diastolic blood pressure Provider Name and Address Organization Details Last Updated DateTime 11/22/2023 140 mm[Hg] 80 mm[Hg] WESTLEY Etienne Attn: Accounting[address] [place], [address], [facility] 11/22/2023 15:39:05 Social History Question Answer Notes LastModified by Organizat ion Details LastModified Time Tobacco Smoking Status Former Smoker Quit over 2 years ago Celeste lundy, [facility] 11/22/2023 15:03:31 Do You Have An Advance Directive? Yes Information not available 11/22/2023 What Is Your Level Of Alcohol Consumption? Occasional Wine Once Or Twice A Month Information not available 11/22/2023 Are You Blind Or Do You Have Difficulty Seeing? No Glasses Information not available 07/18/2023 What Is Your Level Of Caffeine Consumption? Moderate Coffee Information not available 11/22/2023 In The 14 Days Before Symptom Onset, Have You Had Close Contact With A Laboratory-confir med COVID-19 While That Case Was Ill? No Information not available 07/18/2023 In The 14 Days Before Symptom Onset, Have You Had Close Contact With A Person Who Is Under Investigation For COVID-19 While That Person Was Ill? No Information not available 07/18/2023 Have You Been To An Area Known To Be High Risk For COVID-19? No Information not available 07/18/2023 Are You Currently Employed? No Retired Information not available 11/22/2023 Are You Deaf Or Do You Have Serious Difficulty Hearing? No Information not available 07/18/2023 What Type Of Diet Are You Following? REGULAR Information not available 07/18/2023 What Is The Highest Grade Or Level Of School You Have Completed Or The Highest Degree You Have Received? [id number] Information not available 11/22/2023 Are There Any Guns Present In Your Home? Yes Information not available 11/22/2023 In The Past 7 Days, How Many Days Did You Exercise? 7 Information not available 11/22/2023 On The Days When You Exercised, How Long Did You Exercise Each Day (in Minutes)? 45 Information not available 11/22/2023 How Intense Was Your Typical Exercise? Moderate (brisk Walking) Information not available 11/22/2023 In The Past 7 Days, How Much Pain Have You [place]? Some Information not available 11/22/2023 In General, Would You Say You Health Is: Good Information not available 11/22/2023 How Would You Describe The Condition Of Your Mouth And Teeth- Including False Teeth Or Dentures? Good Information not available 11/22/2023 Each Night, How Many Hours Of Sleep Do You Get? 5 Information no t available 11/22/2023 Has Anyone Ever Told You That You Snore? No Information not available 11/22/2023 In The Past 7 Days, How Often Have You [place] Sleepy In The Daytime? Always Information not available 11/22/2023 # Alcohol Drinks Per Week 0 Information not available 11/22/2023 What Was The Date Of Your Most Recent Tobacco Screening? 11/22/2023 Information not available 11/22/2023 What Is Your Current Pack Years? 20-29packyear s Information not available 11/22/2023 What Is Your Relationship Status? Information not available 07/18/2023 Do You Use Your Seat Belt Or Car Seat Routinely? Yes Information not available 07/18/2023 Do You Have Smoke And Carbon Monoxide Detectors In Your Home? Yes Information not available 07/18/2023 How Much Tobacco Do You Smoke? No Information not available 11/22/2023 Do You Feel Stressed (tense, Restless, Nervous, Or Anxious, Or Unable To Sleep At Night)? [id number] Information not available 07/18/2023 Do You Use Any Illicit Or Recreational Drugs? No Information not available 07/18/2023 Do You Use Sunscreen Routinely? No Information not available 07/18/2023 Has Tobacco Cessation Counseling Been Provided? No Information not available 11/22/2023 On What Date Was Tobacco Cessation Counseling Provided? 11/22/2023 Information not available 11/22/2023 Do You Or Have You Ever Used Any Other Forms Of Tobacco Or Nicotine? No Information not available 07/18/2023 Sex: Female Functional Status Question Answer Note LastModified by Organization D etails LastModified Time Are you able to care for yourself? Yes Information not available 07/18/2023 What is your exercise level? Moderate Information not available 11/22/2023 Mental Status None recorded. Family History Relationship Description Onset Age of this Age Resolved Age Notes LastModified by Organization Details LastModified Time Sister Malignant tumor of breast tcarterma Not available 2023 15:42:34 Sister Heart disease tcarterma Not available 2023 15:42:42 Father Heart disease tcarterma Not available 2023 15:42:42 Mother Malignant tumor of lung tcarterma Not available 2023 15:42:52 Medical History Condition Response Coronary Artery Disease N Other N High Blood Pressure Y Atrial Fibrillation N Kidney or Bladder Problems N Thyroid Problems N GI Problems N Depression N COPD Y Blood Clots N Have you had a mammogram in the last yea r? Y Skin Problems N Anemia N Heart Attack ([place]) N Anxiety Disorder N Diabetes N Muscle, Joint, or Bone Problems N Seizures/Epilepsy N Have you had a colonoscopy in the last 1 0 years? N Acid Reflux (GERD) Y Cancer N Stroke N Asthma N Allergies N Have you had a PSA blood test in the las t year? N High Cholesterol N Hepatitis N Liver Disease N Headaches N Heart Failure N Osteoporosis N Gynecological History Statement/Question Response Menses Monthly N If Post Menopausal, Age at Menopause 43 Current Control Method Other Obstetrics History GPAL:G 0 P 0 0 0 0 Immunizations Vaccine Type Date Status Note Provider Nam e and Address Organization Details Recorded Time Influenza, high-dose, quadrivalent, PF 1 completed Celeste [place], [place] [facility] 11/22/2023 14:15:45 Influenza, high-dose, quadrivalent, PF 0 completed Celeste [place] [facility] 11/22/2023 14:15:45 Influenza, high-dose, quadrivalent, PF 2 completed Celeste [place] [facility] 11/22/2023 14:15:45 Influenza, adjuvanted, quadrivalent, PF 3 completed Celeste [place] [facility] 11/22/2023 14:15:45 COVID-19, mRNA, LNP-S, PF, 30 mcg/0.3 mL dose 1 completed Celeste [place] [facility] 11/22/2023 14:15:45 COVID-19, mRNA, LNP-S, PF, 30 mcg/0.3 mL dose 1 completed Celeste [place] [facility] 11/22/2023 14:15:45 COVID-19, mRNA, LNP-S, PF, 30 mcg/0.3 mL dose 1 completed Celeste [place] [facility] 11/22/2023 14:15:45 COVID-19, mRNA, LNP-S, PF, 30 mcg/0.3 mL dose, rocio-sucrose 2 completed Celeste [place] [facility] 11/22/2023 14:15:45 COVID-19, mRNA, LNP-S, bivalent, PF, 30 mcg/0.3 mL dose 2 completed Celeste [place] [facility] 11/22/2023 14:15:45 COVID-19, mRNA, LNP-S, PF, rocio-sucrose, 30 mcg/0.3 mL 3 completed Celeste [place] [facility] 11/22/2023 14:15:45 pneumococcal polysaccharide PPV23 9 completed Celeste [place], [place] [facility] 11/22/2023 14:15:45 Influenza, high-dose, trivalent, PF 9 completed Celeste [place] [facility] 11/22/2023 14:15:45 Influenza, split virus, trivalent, PF 7 completed Celeste [place] [facility] 11/22/2023 14:15:45 Influenza, split virus, quadrivalent, PF 8 completed Celeste [place] [facility] 11/22/2023 14:15:45 Pneumococcal conjugate PCV20, polysaccharide QCL000 conjugate, adjuvant, PF 4 completed WESTLEY Etienne Attn: Accounting,[address] [place], [address], [facility] 11/26/2023 10:47:07 Past Encounters Encounter ID Performer Location Encounter Start Date Encounter Closed Date Diagnosis/Indication Diagnosis SNOMED-CT Code Diagnosis ICD10 Code [id number] WESTLEY Etienne [facility] [employer] [facility] [address] [place] [address] 07/18/2023 14:41:52 07/18/2023 16:10:31 Screening for malignant neoplasm of colon 862881391 Z12.11 Antibiotic -associated diarrhea 908793905 T36.95XA Acute maxi llary sinusitis 07391119 J01.00 Benign ess ential hypertension 1516205 I10 Gastroesop hageal reflux disease without esophagitis 312929611 K21.9 Long-term drug therapy 409005253 Z79.899 History of Schatzkis ring 6446660608 3459589 Z87.19 Cholesterol screening 27 9966308 Z13.220 Screening mammography 24 068097 Z12.31 Blood gluc ose outside reference range 427989800 R73.09 [id number] WESTLEY Etienne [facility] [employer] [facility] [place] [address] [place] [address] 11/22/2023 14:14:54 11/22/2023 16:20:55 Adult health examination 937495493 Z00.00 Overweight 928129702 E66 .3 Administra tion of pneumococcal vaccine 78382090 Z23 Body mass index 25-29 - overweight 821179005 Z68.28 Health Concerns Section Related Observation LastModified by Organization Detai ls LastModified Time None Recorded Concern Status LastModified by Organization Details LastModified Time None Recorded Advance Directives Directive Y: Payers Encounter Date Sequence Insurance Name Policy Number Policy Anthony Covered Member ID Anthony Member ID Guarantor Name 07/18/2023 1 [place] Edita Ger [id number] Edita Ger 07/18/2023 2 [employer] (MEDICARE SUPPLEMENT) Edita Ger [id number] Edita Ger 11/22/2023 1 [place] Edita Ger [id number] Edita Ger 11/22/2023 2 [employer] (MEDICARE SUPPLEMENT) Edita Ger [id number] Edita Ger Notes Date Note Type Note Provider Name and Address Organization Details Recorded Time 4 text/html HypertensionReported bypatient.Notes:stable on losartan 50mg daily . pt takes half tab.Reflux/GERDReported bypatient.Notes:having some breakthrough reflux on famotidine 20mg bid. pt. has been due for cologuard but state she wants to get other problems taken care of first before she has it scheduled.States that she isn't sure if she need something stronger then the famotidine, states that she also wants to discuss her antibiotic states that when she takes it, it gives her watery diarrhea and it gomes..States that she also has been getting pressure in her cheek bones as well as in her gums states she isn't sure where its coming from states that she has gotten this cough but isn't sure where it came from. States that she isn't sure if its coming from the medicine or the acid reflux.pt. also has been having green/thick mucus from sinuses. mild pain and congestion. no cough. WESTLEY Etienne Attn: Accounting,[address] [facility], [place], [address], [place] - [facility] 07/25/2023 13:37:23 08/29/202 4 text/html MAW 2Reported bypatient.Diet and Nutrition:healthy diet Fracture Risk:no sudden unexplained fractures;history of fractures(right knee cap in 2016) Concentration and Memory:no decreased concentrating ability; no memory lapses or loss; does not forget words Speech/Motor difficulties:no speech difficulties; no difficulty expressing formulated concepts; no difficulty with fine manipulative tasks; no difficulty writing/copying; no slowed reaction time; does not knock things over when trying to pick them up Hearing:no loss of hearing Vision:worse both distance and near(glasses) Activities of Daily Living:able to bathe with limited or no assistance; able to contol urination and bowels; able to dress with limited or no assistance; able to feed self with limited or no assistance; able to get out of chair or bed with limited or no assistance; able to groom with limited or no assistance; able to toilet with limited or no assistance Instrumental Activities of Daily Living:able to do house work with limited or no assistance; able to grocery shop with limited or no assistance; able to manage medications with limited or no assistance; able to manage money with limited or no assistance; able to prepare meals with limited or no assistance; able to use the phone with limited or no assistance Falls Risk Assessment:no frequent falls while walking; no fall in the past year; no fall since last visit; no dizziness/vertigo Home Safety:reviewed sun protection; no unsafe louie hazzards; no unsafe stairs; working smoke/CO detectors; practicing 'safer sex'; good lighting in the home;fire arms;does not have hand bars in the bathroom/shower WESTLEY Etienne Attn: Accounting,[address] [place], [id number], [facility] 11/26/2023 10:50:11 OBGyn Episode No OBEpisode recorded.
--- OUTSIDE RECORDS SUMMARY | 2024-03-24 06:36 | XMS_ITS | Data Portability ---
Author Organization [place] - [facility] OFFICE Address [address] [place] [address] Assessment Encounter Date Assessment Date Assessment LastModified by Organization Details LastModified Time 05/27/2019 05/27/2019 Discussed with patient findings, diagnosis, and prognosis. Discussed evaluation and treatment options including risks and benefits with patient, and patient expressed understanding. The following interventions were recommended: heart healthy low-fat, low-sodium diet, continue regular exercise, maintain appropriate weight, continue current medications, and medical follow-up as noted. [email or web address] Not available 05/27/2019 09:57:02 01/06/2020 01/06/2020 Discussed with patient findings, diagnosis, and prognosis. Discussed evaluation and treatment options including risks and benefits with patient, and patient expressed understanding. The following interventions were recommended: heart healthy low-fat, low-sodium diet, continue regular exercise, maintain appropriate weight, continue current medications, and medical follow-up as noted. Not available 01/05/2020 15:01:40 02/08/2021 02/08/2021 .scribed by Babita CHRISTY and examined by both Dr Oglesby plan [email or web address] by Dr Cash sims Not available 02/08/2021 15:18:37 Plan of Treatment Reminders Order Date Submit Date Provider Last Modified By Organization Details Last Modified Time Details Appointments None recorded. Lab None recorded. Referral None recorded. Procedures None recorded. Surgeries None recorded. Imaging None recorded. Medication Orders metoprolol succinate ER 25 mg tablet,exte nded release 24 hr 2020 021 [facility] #[id number], [address], [phone], 14:48:50 metoprolol succinate ER 25 mg tablet,exte nded release 24 hr 2020 021 [place] [facility] #[id number], [address], [place], [place], [phone], 15:20:06 Patient TargetsNo targets recorded. Patient Instructions Encounter Date Encounter Id Patient Instructions Last Modified By Organization Details Last Modified Time 05/27/2019 [id number] chest pain: care instructions [email or web address] Not available 05/27/2019 11:01:05 supraventricular tachycardia: care instructions Not available 05/27/2019 11:01:05 gastroesophageal reflux disease (GERD): care instructions [email or web address] Not available 05/27/2019 11:01:05 01/06/2020 [id number] chest pain: care instructions [email or web address] Not available 01/06/2020 13:07:02 supraventricular tachycardia: care instructions [email or web address] Not available 01/06/2020 13:07:02 gastroesophageal reflux disease (GERD): care instructions [email or web address] Not available 01/06/2020 13:07:02 02/16/2020 [id number] chest pain: care instructions [email or web address] Not available 02/16/2020 14:25:27 supraventricular tachycardia: care instructions [email or web address] Not available 02/16/2020 14:25:27 gastroesophageal reflux disease (GERD): care instructions [email or web address] Not available 02/16/2020 14:25:27 Exercise advised Low cholesterol diet advised Low sodium diet advised [email or web address] Not available 02/16/2020 14:15:37 Patient was seen and evaluated by Amber Gillis [facility]. Plan of care was discussed with collaborating physician and note cosigned by Dr. Bruno Castrejon. Not available 02/16/2020 15:15:35 07/26/2020 [id number] chest pain: care instructions [email or web address] Not available 07/26/2020 14:42:36 supraventricular tachycardia: care instructions [email or web address] Not available 07/26/2020 14:42:36 gastroesophageal reflux disease (GERD): care instructions [email or web address] Not available 07/26/2020 14:42:36 Exercise advised Low cholesterol diet advised Low sodium diet advised [email or web address] Not available 07/26/2020 14:42:19 Scribed by Kathie Gillis [facility] [email or web address] Not available 07/26/2020 14:42:25 02/08/2021 [id number] chest pain: care instructions [email or web address] Not available 02/08/2021 15:19:57 gastroesophageal reflux disease (GERD): care instructions [email or web address] Not available 02/08/2021 15:19:57 Exercise advised Low cholesterol diet advised Low sodium diet advised. [email or web address] Not available 02/08/2021 15:19:56 Reason for Referral None Reported. Results Created Date Observation Date Name Description Value Unit Range Abnormal Flag Note LastModifiedBy Organization Detail LastModifiedTime 05/27/19 20 05/27/2019 elect rocar diogr am No observ ation record ed. [email or web address] Not Available 05/26 17:13:09 01/06/20 20 01/06/2020 [facility] rocar diogr am No observ ation record ed. [email or web address] Not Available 01/06 11:29:39 01/06/20 20 01/06/2020 [facility] rocar diogr am No observ ation record ed. [email or web address] Not Available 2019 09:44:20 02/17/20 20 02/05/2020 tread mill nucle ar stres s test (PROC ) No observ ation record ed. [email or web address] Not Available 2019 11:27:47 08/03/19 21 07/26/2020 [facility] rocar diogr am No observ ation record ed. Not Available 08/02 10:44:45 02/12/20 21 02/08/2021 [facility] rocar diogr am No observ ation record ed. [email or web address] Not Available 2020 10:24:47 Result Notes Documentation Provider Name and Address Organization Details Recorded Time Cbc W/ Diff : 10/16/19:WBC 8.1,RBC 4.51,HGB 13.6,HCT 41.3,PLT 321. Lorin Reyes [facility], [place] - [facility] 10/18/2019 19:58:32 Lipid Panel, Blood : 10/22/20:WBC 6.3,RBC 4.17,HGB 12.8,HCT 37.6,PLT 299. 10/21/20:Na 138,K 4.7,Cl 103,Co2 24,Glu 91,Bun 13,Cr 0.8. 10/21/20:TC 196,TG 73,HDL 61,LDL 122. Lorin Reyes [place], [place] - [facility] 10/24/2020 15:02:09 Problems Name Problem SNOMED Code Status Onset Date Resolution Date Notes Provider Name and Address Organization Details Recorded Time Chest pain 47461709 Active 2018 Josh Floyd [facility], [place] - [facility] 9 15:47:13 Supraventricul ar tachycardia 9602244 Active 2018 Josh Floyd [facility], [facility] 9 15:54:53 Gastroesophage al reflux disease 023125015 Active 2018 Josh Velazquezan [facility], [place] - [facility] 9 16:21:56 Tobacco dependence syndrome 06991024 Active 2018 Halyoel Mcgee [facility], [place] - [facility] 9 14:38:17 Mixed hyperlipidemia 898090938 Active 2019 Josh Mariel [facility], [place] - [facility] 0 12:35:26 Problem Notes None recorded. Procedures Surgical History None recorded. Imaging Results Imaging Date Name Status LastModified by Organization Details LastModified Time 05/27/2019 electrocardiogram completed Informa tion not available 05/27/2019 17:13:09 01/06/2020 electrocardiogram completed [email or web address] Informa tion not available 01/07/2020 11:29:39 01/06/2020 electrocardiogram completed [email or web address] Informa tion not available 01/13/2020 09:44:20 02/05/2020 treadmill nuclear stress test (PROC) completed [email or web address] Information not available 02/17/2020 11:27:47 07/26/2020 electrocardiogram completed [email or web address] Informa tion not available 08/02/2020 10:44:45 02/08/2021 electrocardiogram completed [email or web address] Informa tion not available 02/11/2021 10:24:47 Procedure Notes None recorded. Medical Equipment None Reported. Allergies Allergen ID Allergen Name Allergen Category Reaction Reaction Severity Criticality Documentation Date Start Date Code Code System Note Provider Name and Address Organization Details Recorded Time 7462 morphine medicatio n rash severe Not available 04/08/2018 7052 RxNorm FAB PAMELLA [place], [place] - [facility] 9 15:13:21 Medications Name Sig Start Date Stop Date Status Note LastModified by Organization Details LastModified Time amoxicill in 500 mg capsule 07/26 completed Not Available Not Available Not Available prednison e 10 mg tablet active pt no longer takes 02/09/20 21 nj Not Available Not Available Not Available ketoconaz ole 2 % shampoo APPLY 1 APPLICAT ION 3 TIMES EVERY WEEK TO SCALP active pt no longer takes 02/09/20 21 nj Not Available Not Available Not Available azithromy shahida 250 mg tablet active Not Available Not Available No t Available famotidin e 40 mg tablet 11/21 completed pt not taking this at this time.[email or web address] 11/21/17 Not Available Not Available Not Available prednison e 20 mg tablet TAKE 2 TABLETS BY MOUTH EVERY DAY FOR 5 DAYS active Not Available Not Available No t Available famotidin e 20 mg tablet TAKE 1 TABLET BY MOUTH TWICE DAILY WITH MEALS active Not Available Not Available No t Available lorazepam 0.5 mg tablet 04/08 completed Not Available Not Available Not Available neomycin- polymyxin -dexameth 3.5 mg/mL-10, 000 unit/mL-0 .1% eye drops 02/15 completed pt not taking 01/15/20 Not Available Not Available Not Available diclofena c sodium 75 mg tablet,de layed release 02/15 completed pt not taking 01/15/20 Not Available Not Available Not Available metoprolo l succinate ER 25 mg tablet,ex tended release 24 hr TAKE 1/2 TABLET BY MOUTH EVERY DAY active Not Available Not Available No t Available clobetaso l 0.05 % scalp solution 02/15 completed pt not taking 01/15/20 Not Available Not Available Not Available cefdinir 300 mg capsule 04/08 completed Not Available Not Available Not Available betametha sone dipropion ate 0.05 % lotion 02/15 completed pt not taking 01/15/20 Not Available Not Available Not Available Asprin Ec Low Dose 81 mg tablet,de layed release Take 1 tablet every day by oral route. 05/26 completed pt is not taking this medicati on 05/27/19 20 sm Not Available Not Available Not Available Vitamin D 2000 qd active pt no longer takes 02/09/20 21 nj Not Available Not Available Not Available Calcium 600 with Vitamin D3 active Not Available Not Available Not Available metoprolo l succ 25 mg-hydroc hlorothia zide 12.5 mg tablet,ex t.rel 24 hr Take 1 tablet every day by oral route at dinner. 07/26 completed Not Available Not Available Not Available Virtussin AC 10 mg-100 mg/5 mL oral liquid 04/08 completed Not Available Not Available Not Available BinaxNOW COVID-19 Ag Self Test kit TEST DIRECTED TODAY active Not Available Not Available No t Available aspirin 81 mg capsule Take 1 capsule every day by oral route. active pt is unsure whether she should take it or not 02/09/20 21 nj Not Available Not Available Not Available Vitals Date Recorded Body height Body mass index (BMI) Body weight Heart rate Respiratory rate Oxygen saturation Oxygen saturation in Arterial blood by Pulse oximetry Systolic blood pressure Diastolic blood pressure Provider Name and Address Organization Details Last Updated DateTime 0 167.64 cm 22.6 kg/m2 11426.9 3 g 82 /min 18 /min 98 % 98 % 130 mm[Hg] 80 mm[Hg] Frida Jacinta [facility] 0 09:58:37 Date Recorded Body height Body mass index (BMI) Body weight Heart rate Oxygen saturation Oxygen saturation in Arterial blood by Pulse oximetry Body temperature Systolic blood pressure Diastolic blood pressure Provider Name and Address Organization Details Last Updated DateTime 0 167.64 cm 22 kg/m2 98579.5 6 g 84 /min 97 % 97 % 97.4 [degF] 128 mm[Hg] 75 mm[Hg] Bruno Adams [facility] 0 11:49:04 Date Recorded Body height Body mass index (BMI) Body weight Heart rate Oxygen saturation Oxygen saturation in Arterial blood by Pulse oximetry Provider Name and Address Organization Details Last Updated DateTime 0 167.64 cm 22.2 kg/m2 57737.6 7 g 111 /min 97 % 97 % Maki Davis [facility] 0 13:59:48 Date Recorded Systolic blood pressure Diastolic blood pressure Provider Name and Address Organization Details Last Updated DateTime 02/16/2020 120 mm[Hg] 72 mm[Hg] Amber Gillis [employer] 02/16/2020 14:17:20 Date Recorded Body height Body mass index (BMI) Body weight Heart rate Respiratory rate Oxygen saturation Oxygen saturation in Arterial blood by Pulse oximetry Systolic blood pressure Diastolic blood pressure Provider Name and Address Organization Details Last Updated DateTime 1 167.64 cm 21.6 kg/m2 31021.3 8 g 94 /min 16 /min 96 % 96 % 124 mm[Hg] 74 mm[Hg] Shameka Mullins [facility] 1 14:00:54 Date Recorded Body height Body mass index (BMI) Body weight Heart rate Oxygen saturation Oxygen saturation in Arterial blood by Pulse oximetry Provider Name and Address Organization Details Last Updated DateTime 1 167.64 cm 22.6 kg/m2 75765.6 5 g 76 /min 96 % 96 % JERILYN HURST [facility] 1 14:23:42 Social History Question Answer Notes LastModified by Organizat ion Details LastModified Time Tobacco Smoking Status Former Smoker Not Available [facility] 01/27/2020 03:30:42 What Is Your Level Of Alcohol Consumption? Occasional [id number] Information not available 01/27/2020 What Is Your Level Of Caffeine Consumption? Occasional [id number] Information not available 01/27/2020 Do You Or Have You Ever Used E-cigarettes Or Vape? 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 05/21/2018 [id number] Information not available 01/27/2020 How Many Children Do You Have? 0 [id number] Information not available 01/27/2020 Do You Or Have You Ever Used Smokeless Tobacco? Former Smokeless Tobacco User [id number] Information not available 01/27/2020 Sex: Unknown Functional Status None recorded. Mental Status None recorded. Family History Relationship Description Onset Age of this Age Resolved Age Notes LastModified by Organization Details LastModified Time Sister Heart disease [email or web address] Not available 2018 14:47:35 Father Myocardial infarction [email or web address] Not available 04/08 14:48:16 Unspecified Relation Diabetes mellitus [email or web address] Not available 2018 14:48:24 Notes:Father with [place] in late 50s. Medical History Condition Response Hyperlipidemia Y Arrhythmia Y GERD/Reflux Y Gynecological HistoryNo gynecological history recorded. Obstetrics History GPAL:G 0 P 0 0 0 0 Past Encounters Encounter ID Performer Location Encounter Start Date Encounter Closed Date Diagnosis/Indication Diagnosis SNOMED-CT Code Diagnosis ICD10 Code [id number] Josh Floyd [facility] [address] [place] [address] 04/08/2018 14:10:40 04/08/2018 16:24:42 Chest pain 38437487 R07.2 Supraventr icular tachycardia 0243043 I47.1 Gastroesop hageal reflux disease 089251223 K21.9 [id number] Josh Garcia Office [address] [place] [address] 05/21/2018 10:18:21 05/21/2018 11:22:22 Chest pain 14438150 R07.2 Supraventr icular tachycardia 0656767 I47.1 Gastroesop hageal reflux disease 439826716 K21.9 [id number] Josh Garcia Office [address] [place] [address] 11/21/2018 15:32:02 11/21/2018 17:13:25 Chest pain 63641658 R07.2 Supraventr icular tachycardia 7500178 I47.1 Gastroesop hageal reflux disease 508683407 K21.9 [id number] Josh Garcia Office [address] [place] [address] 05/27/2019 09:41:00 05/27/2019 11:02:19 Chest pain 90261489 R07.2 Supraventr icular tachycardia 7852939 I47.1 Gastroesop hageal reflux disease 279372452 K21.9 [id number] Josh Triana Office [address] [place] [address] 01/06/2020 11:33:49 01/06/2020 13:10:51 Chest pain 58636033 R07.2 Supraventr icular tachycardia 3712842 I47.1 Gastroesop hageal reflux disease 400626697 K21.9 Mixed hyperlipidemia 267 378407 E78.2 [id number] Amber Gillis [facility] [place] [address] 02/16/2020 13:53:14 02/16/2020 15:15:51 Chest pain 65804716 R07.2 Supraventr icular tachycardia 4110611 I47.1 Gastroesop hageal reflux disease 959940440 K21.9 Mixed hyperlipidemia 267 989426 E78.2 [id number] Amber Gillis [facility] Office [facility] [place] [address] 07/26/2020 13:51:43 07/26/2020 14:43:19 Chest pain 89788999 R07.2 Supraventr icular tachycardia 4068678 I47.1 Gastroesop hageal reflux disease 478778751 K21.9 Mixed hyperlipidemia 267 239073 E78.2 [id number] Bruno Castrejon MD [facility] [address] [place] [address] 02/08/2021 13:55:07 02/08/2021 15:25:17 Chest pain 64211061 R07.2 Supraventr icular tachycardia 0084635 I47.1 Gastroesop hageal reflux disease 126224191 K21.9 Mixed hyperlipidemia 267 432716 E78.2 Essential hypertension 48935245 I10 Health Concerns Section Related Observation LastModified by Organization Detai ls LastModified Time None Recorded Concern Status LastModified by Organization Details LastModified Time None Recorded Advance Directives Directive None Recorded Payers Encounter Date Sequence Insurance Name Policy Number Policy Anthony Covered Member ID Anthony Member ID Guarantor Name 05/27/2019 1 [place] Edita Cyr [id number] Edita Cyr 05/27/2019 2 [employer] (MEDICARE SUPPLEMENT) Edita Cyr [id number] Edita Cyr 01/06/2020 1 [place] Edita Cyr [id number] Edita Cyr 01/06/2020 2 [employer] (MEDICARE SUPPLEMENT) Edita Ger [id number] Edita Cyr 02/16/2020 1 [place] Cyr [id number] Edita Cyr 02/16/2020 2 [employer] (MEDICARE SUPPLEMENT) Edita Ger [id number] Edita Cyr 07/26/2020 1 [place] Cyr [id number] Edita Cyr 07/26/2020 2 [employer] (MEDICARE SUPPLEMENT) Edita Cyr [id number] Edita Cyr 02/08/2021 1 [place] Edita Cyr [id number] Edita Cyr 02/08/2021 2 [employer] (MEDICARE SUPPLEMENT) Edita Ger [id number] Edita Cyr Notes Date Note Type Note Provider Name and Address Organization Details Recorded Time 05/27/2019 text/html 05/27/19 cc: follow-up chest pain. 63 year-old white woman with history of former tobacco dependence (quit 09/2015, 25 pack-year), hiatal hernia, GERD, arthritis, presents in follow-up with a chief complaint of chest pain. Patient was admitted [facility] 03/31/18 with left chest pressure. Had negative trop-I. Telemetry revealed normal sinus rhythm with asymptomatic possible brief run of SVT up to 180 bpm vs. artifact. Had 04/01/18 STRESS ECHO: Stress echocardiogram negative for inducible ischemia at 85% MPHR. Reduced functional capacity. Technically difficult study with limited views. Reports less GERD with less spicy food and less soda. Had increased GERD 02/2019 with nausea, heartburn, dysphagia, emesis. Reports episode 04/05/2018 of central chest burning for 10 min. with sour taste in mouth and nausea with gradual relief with burping, Tums, and soda. Some associated left arm and left neck discomfort. Patient's pantoprazole was discontinued 1 year ago. Home BP < 130/80. Consumed 4 cups of coffee and 20 oz Coke daily, but has decreased. {{No known history of coronary artery disease.* History of coronary artery disease reported.}} {{No history of previous myocardial infarction.* History of previous myocardial infarction reported.}} {{No history of heart failure.* History of heart failure reported.}} {{No known valvular heart disease.* History of valvular heart disease reported.}} {{History of arrhythmia reported as above.# No known arrhythmia. History of arrhythmia reported.}} {{Patient reports feeling well overall.* Patient reports not feeling well sometimes.}} {{Patient is active, exercising regularly, with bike and floor exercises.# Patient is active, but is not exercising regularly. Patient is active, exercising regularly. Patient is not very active, and is not exercising.}} {{No chest pain.* Chest pain reported. Exertional chest pain reported. Non-exertion al chest pain reported. Chest pain reported which is only sometimes associated with activity.}} {{No arm pain.* Arm pain reported.}} {{No neck pain. Neck pain reported.*}} {{Rare nausea with spicy foods but no vomiting reported.# No nausea and vomiting. Nausea and vomiting reported.}} {{No diaphoresis.* Diaphore sis reported.}} {{No shortness of breath at rest.* Shortness of breath at rest reported.}} {{Dyspnea on exertion reported, minimal, stable.# No dyspnea on exertion. Dyspnea on exertion reported.}} {{No fatigue.* Fatigue reported.}}{{No orthopnea.* Orthopnea reported.}} {{No PND.* PND reported.}} {{No leg swelling.* Leg swelling reported.}} {{No palpitation.* Palpitat ion reported.}} {{Dizziness reported, rare, postural.# No dizziness. Dizziness reported.}} {{No syncope .* Syncope reported.}} {{No pre-syncope.* Pre-sync ope reported.}} {{No claudication.* Claudic ation reported.}} {{No major bleeding events.* Major bleeding event reported.}} {{No side effects from medications.* Side effects from medications reported.}} {{Complete ROS negative except as stated in the HPI. Complete ROS negative except as stated in the HPI and ROS.*}} Results from this visit, or from the past: 04/24/18: TSH 0.922 03/31/18: HB 12.8, HT 38.7003/31/17: TC 184 ,TG 69 ,HDL 49 ,LDL 6044703/31/18: NA 137 ,K 4.1, CL 104 ,CO2 27, GLU 98, BUN 11, CR 0.8,03/31/18: LDL 109, Mg 2.1, K 4.1 EKG 11/21/2018 NSR. Possible right anterior enlargement. EKG 04/08/18 : NSR WNL .05/09/18 Holter Monitor: Unremarkable holter. NSR. Rare PVC's but not correlated to symptoms. Rare PAC's but not correlated with symptoms. 05/09/18 Holter Monitor: Unremarkable holter. NSR. Rare PVC's but not correlated to symptoms. Rare PAC's but not correlated with symptoms.Attachment available 04/01/18 STRESS ECHO: Stress echocardiogram negative for inducible ischemia at 85% MPHR. RXR, chest 03-31-2018 03/31/18 CHEST 2 VIEW: No acute cardiopulmonary educed functional capacity. Technically difficult study with limited views. Josh Floyd [place], [place] - [facility] 05/27/2019 11:01:29 01/06/2020 text/html 01/06/20 cc: follow-up chest pain. 64 year-old white woman with history of former tobacco dependence (quit 09/2015, 25 pack-year), hyperlipidemia, hiatal hernia, GERD, arthritis, presents in follow-up with a chief complaint of chest pain. Pt last seen 05/27/19. Today reports feeling fine recently. Reports she feels exercising has been helping her feel better, doing at least 30 min of walking every day, also rides recumbent bike. Patient was admitted [facility] 03/31/18 with left chest pressure. Had negative trop-I. Telemetry revealed normal sinus rhythm with asymptomatic possible brief run of SVT up to 180 bpm vs. artifact. Had 04/01/18 STRESS ECHO: Stress echocardiogram negative for inducible ischemia at 85% MPHR. Reduced functional capacity. Technically difficult study with limited views. Reports less GERD with less spicy food and less soda. Had increased GERD 02/2019 with nausea, heartburn, dysphagia, emesis. Reports episode 04/05/2018 of central chest burning for 10 min. with sour taste in mouth and nausea with gradual relief with burping, Tums, and soda. Some associated left arm and left neck discomfort. Patient's pantoprazole was discontinued 1 year ago. Home BP < 130/80. Consumed 4 cups of coffee and 20 oz Coke daily, but has decreased. {{No known history of coronary artery disease.* History of coronary artery disease reported.}} {{No history of previous myocardial infarction.* History of previous myocardial infarction reported.}} {{No history of heart failure.* History of heart failure reported.}} {{No known valvular heart disease.* History of valvular heart disease reported.}} {{History of arrhythmia reported as above.# No known arrhythmia. History of arrhythmia reported.}} {{Patient reports feeling well overall.* Patient reports not feeling well sometimes.}} {{Patient is active, exercising regularly, with bike and floor exercises.# Patient is active, but is not exercising regularly. Patient is active, exercising regularly. Patient is not very active, and is not exercising.}} {{Chest pain reported, left chest ache, not necessarily exertional.# No chest pain. Chest pain reported. Exertional chest pain reported. Non-exertion al chest pain reported. Chest pain reported which is only sometimes associated with activity.}} {{No arm pain.* Arm pain reported.}} {{No neck pain. Neck pain reported.*}} {{Rare nausea with spicy foods but no vomiting reported.# No nausea and vomiting. Nausea and vomiting reported.}} {{No diaphoresis.* Diaphore sis reported.}} {{No shortness of breath at rest.* Shortness of breath at rest reported.}} {{Dyspnea on exertion reported, with walking 10 min. on occasion.# No dyspnea on exertion. Dyspnea on exertion reported.}} {{No fatigue.* Fatigue reported.}}{{No orthopnea.* Orthopnea reported.}} {{No PND.* PND reported.}} {{No leg swelling.* Leg swelling reported.}} {{No palpitation.* Palpitat ion reported.}} {{Dizziness reported, rare, postural.# No dizziness. Dizziness reported.}} {{No syncope .* Syncope reported.}} {{No pre-syncope.* Pre-sync ope reported.}} {{No claudication.* Claudic ation reported.}} {{No major bleeding events.* Major bleeding event reported.}} {{No side effects from medications.* Side effects from medications reported.}} {{Complete ROS negative except as stated in the HPI. Complete ROS negative except as stated in the HPI and ROS.*}} Results from this visit, or from the past: 10/16/19 BMP: NA 140, K 4.7, CL 101, CO2 25, GLU 117, BUN 15, CR 0.:Mg 2.1.10/16/19: LIPID: TC 200, TR 147, HDL 59, LDL 0400510/16/19:WBC 8.1,RBC 4.51,HGB 13.6,HCT 41.3,PLT 321. 04/24/18: TSH 0.922 03/31/18: HB 12.8, HT 38.7003/31/17: TC 184 ,TG 69 ,HDL 49 ,LDL 6372003/31/18: NA 137 ,K 4.1, CL 104 ,CO2 27, GLU 98, BUN 11, CR 0.8,03/31/18: LDL 109, Mg 2.1, K 4.1 05/27/2019 : EKG ; Sinus Rhythm inverted T wave in AVLEKG 11/21/2018 NSR. Possible right anterior enlargement. EKG 04/08/18 : NSR WNL .05/09/18 Holter Monitor: Unremarkable holter. NSR. Rare PVC's but not correlated to symptoms. Rare PAC's but not correlated with symptoms. 05/09/18 Holter Monitor: Unremarkable holter. NSR. Rare PVC's but not correlated to symptoms. Rare PAC's but not correlated with symptoms.Attachment available 04/01/18 STRESS ECHO: Stress echocardiogram negative for inducible ischemia at 85% MPHR. RXR, chest 03-31-2018 03/31/18 CHEST 2 VIEW: No acute cardiopulmonary educed functional capacity. Technically difficult study with limited views. Josh lundy, [place] - [facility] 01/06/2020 13:07:23 02/16/2020 text/html 02/16/2020 cc: chest pain 64 year-old white woman with history of former tobacco dependence (quit 09/2015, 25 pack-year), hyperlipidemia, hiatal hernia, GERD, arthritis, presents in follow-up. She was last seen in clinic 1 month ago on 01/06/20. Since then she reports feeling well. She had a TDM 02/05/2020 which was negative and revealed normal LV systolic function. Reports she feels exercising has been helping her feel better, doing at least 30 min of walking every day, also rides recumbent bike. No chest pain. No shortness of breath at rest. No dyspnea on exertion. No orthopnea. No PND's. No dizziness. No palpitation. No syncope or near syncope. No leg swelling. No nausea and vomiting. No side effects from medications. Patient was admitted [facility] 03/31/18 with left chest pressure. Had negative trop-I. Telemetry revealed normal sinus rhythm with asymptomatic possible brief run of SVT up to 180 bpm vs. artifact. Had 04/01/18 STRESS ECHO: Stress echocardiogram negative for inducible ischemia at 85% MPHR. Reduced functional capacity. Technically difficult study with limited views. Reports less GERD with less spicy food and less soda. Had increased GERD 02/2019 with nausea, heartburn, dysphagia, emesis. Reports episode 04/05/2018 of central chest burning for 10 min. with sour taste in mouth and nausea with gradual relief with burping, Tums, and soda. Some associated left arm and left neck discomfort. Patient's pantoprazole was discontinued 1 year ago. Home BP < 130/80. Results from this visit, or from the past: 10/16/19 BMP: NA 140, K 4.7, CL 101, CO2 25, GLU 117, BUN 15, CR 0.:Mg 2.1.10/16/19: LIPID: TC 200, TR 147, HDL 59, LDL 0434410/16/19:WBC 8.1,RBC 4.51,HGB 13.6,HCT 41.3,PLT 321.04/24/18: TSH 0.922 03/31/18: HB 12.8, HT 38.7 03/31/17: TC 184 ,TG 69 ,HDL 49 ,LDL 20276: NA 137 ,K 4.1, CL 104 ,CO2 27, GLU 98, BUN 11, CR 0.8,03/31/18: LDL 109, Mg 2.1, K 4.1 EKG 01/06/2020 Sinus rhythm P right atrial overload P>0.25 mV in II aVF P=106 ms. QRS RSR in V1 and V2 ST-T normal. Conclusion possibly abnormal ECG05/27/2019 : EKG ; Sinus Rhythm inverted T wave in AVLEKG 11/21/2018 NSR. Possible right anterior enlargement. EKG 04/08/18 : NSR WNL . 05/09/18 Holter Monitor: Unremarkable holter. NSR. Rare PVC's but not correlated to symptoms. Rare PAC's but not correlated with symptoms. 04/01/18 STRESS ECHO: Stress echocardiogram negative for inducible ischemia at 85% MPHR. RXR, chest 03-31-2018 03/31/18 CHEST 2 VIEW: No acute cardiopulmonary educed functional capacity. Technically difficult study with limited views. Amber Gillis [facility], [place] - [facility] 02/16/2020 15:15:47 07/26/2020 text/html 07/26/2020 cc: chest pain 64-year-old white woman with history of former tobacco dependence (quit 09/2015, 25 pack-year), hyperlipidemia, hiatal hernia, GERD, arthritis, presents in follow-up. She was last seen in clinic 6 months ago on 02/16/2020. Since then she reports feeling well with no new complaints. She previously stopped taking metoprolol 12.5 mg daily d/t complaints of fatigue. She reports after her last visit she began taking it again with resolution of palpitations and chest pain. She has felt very well with the current dose. She had a TDM 02/05/2020 which was negative and revealed normal LV systolic function Has been active but not exercising. No chest pain. No shortness of breath at rest. No dyspnea on exertion. No orthopnea. No PND. No dizziness. No palpitation. No syncope or near syncope. No leg swelling. No nausea and vomiting. No side effects from medications. Patient was admitted [facility] 03/31/18 with left chest pressure. Had negative trop-I. Telemetry revealed normal sinus rhythm with asymptomatic possible brief run of SVT up to 180 bpm vs. artifact. Had 04/01/18 STRESS ECHO: Stress echocardiogram negative for inducible ischemia at 85% MPHR. Reduced functional capacity. Technically difficult study with limited views. Reports less GERD with less spicy food and less soda. Had increased GERD 02/2019 with nausea, heartburn, dysphagia, emesis. Reports episode 04/05/2018 of central chest burning for 10 min. with sour taste in mouth and nausea with gradual relief with burping, Tums, and soda. Some associated left arm and left neck discomfort. Patient's pantoprazole was discontinued 1 year ago. Home BP < 130/80. Results from this visit, or from the past: 10/16/19 BMP: NA 140, K 4.7, CL 101, CO2 25, GLU 117, BUN 15, CR 0.:Mg 2.1.10/16/19: LIPID: TC 200, TR 147, HDL 59, LDL 7020710/16/19:WBC 8.1,RBC 4.51,HGB 13.6,HCT 41.3,PLT 321.04/24/18: TSH 0.922 03/31/18: HB 12.8, HT 38.7 03/31/17: TC 184 ,TG 69 ,HDL 49 ,LDL 9707003/31/18: NA 137 ,K 4.1, CL 104 ,CO2 27, GLU 98, BUN 11, CR 0.8,03/31/18: LDL 109, Mg 2.1, K 4.1 EKG 01/06/2020 Sinus rhythm P right atrial overload P>0.25 mV in II aVF P=106 ms. QRS RSR in V1 and V2 ST-T normal. Conclusion possibly abnormal ECG05/27/2019 : EKG ; Sinus Rhythm inverted T wave in AVLEKG 11/21/2018 NSR. Possible right anterior enlargement. EKG 04/08/18 : NSR WNL . 02/05/20 TDM: Negative stress test for ischemia. Normal LV systolic function. No previous study to compare. LVEF >60%. Exercise tolerance: Below average. 05/09/18 Holter Monitor: Unremarkable holter. NSR. Rare PVC's but not correlated to symptoms. Rare PAC's but not correlated with symptoms. 04/01/18 STRESS ECHO: Stress echocardiogram negative for inducible ischemia at 85% MPHR. RXR, chest 03-31-2018 03/31/18 CHEST 2 VIEW: No acute cardiopulmonary educed functional capacity. Technically difficult study with limited views. Amberramonita Gillis [facility] 07/26/2020 14:48:27 02/08/2021 text/html 02/08/21 CC : Cardiac follow up 65 -year-old white woman with history of former tobacco dependence (quit 09/2015, 25 pack-year), hyperlipidemia, hiatal hernia, GERD, and arthritis, presents for 6 month follow-up. She was last seen in the clinic on 07/26/20 , since then she has been well she is aggravated and my bp is probably up no chest pain no palpitations She denies ER visits and hospitalizations since she was last seen. Today reports:Denies chest pain.Denies shortness of breath at rest. Has mild dyspnea on exertion.No orthopnea. No PNDs.Denies heart palpitations.Denies dizziness. Denies syncope or near syncope.No ankle or leg edema.No major bleeding events.No reported side effects from medications. Taking medications as prescribed with no missed doses.Denies snoring, daytime somnolence and AM headache. *Last LDL was 122 done on 10/20/20 .Pt dose not takes any statins.:TC 196,TG 73,HDL 61,LDL 122. Previously She previously stopped taking metoprolol 12.5 mg daily d/t complaints of fatigue.She reports after her last visit she began taking it again with resolution of palpitations and chest pain. She has felt very well with the current dose. *She had a TDM 02/05/2020 which was negative and revealed normal LV systolic function Patient was admitted [facility] 03/31/18 with left chest pressure. Had negative trop-I. Telemetry revealed normal sinus rhythm with asymptomatic possible brief run of SVT up to 180 bpm vs. artifact. *Had 04/01/18 STRESS ECHO: Stress echocardiogram negative for inducible ischemia at 85% MPHR. Reduced functional capacity. Technically difficult study with limited views. Reports less GERD with less spicy food and less soda. Had increased GERD 02/2019 with nausea, heartburn, dysphagia, emesis. Reports episode 04/05/2018 of central chest burning for 10 min. with sour taste in mouth and nausea with gradual relief with burping, Tums, and soda. Some associated left arm and left neck discomfort. Patient's pantoprazole was discontinued 1 year ago. Results from this visit, or from the past:10/16/19 BMP: NA 140, K 4.7, CL 101, CO2 25, GLU 117, BUN 15, CR 0.:Mg 2.1.10/16/19: LIPID: TC 200, TR 147, HDL 59, LDL 8852010/16/19:WBC 8.1,RBC 4.51,HGB 13.6,HCT 41.3,PLT 321.04/24/18: TSH 0.69700: HB 12.8, HT 38.7 03/31/17: TC 184 ,TG 69 ,HDL 49 ,LDL 7263803/31/18: NA 137 ,K 4.1, CL 104 ,CO2 27, GLU 98, BUN 11, CR 0.8,03/31/18: LDL 109, Mg 2.1, K 4.1 EKG 01/06/2020 Sinus rhythm P right atrial overload P>0.25 mV in II aVF P=106 ms. QRS RSR in V1 and V2 ST-T normal. Conclusion possibly abnormal ECG05/27/2019 : EKG ; Sinus Rhythm inverted T wave in AVLEKG 11/21/2018 NSR. Possible right anterior enlargement. EKG 04/08/18 : NSR WNL . 02/05/20 TDM: Negative stress test for ischemia. Normal LV systolic function. No previous study to compare. LVEF >60%. Exercise tolerance: Below average. 05/09/18 Holter Monitor: Unremarkable holter. NSR. Rare PVC's but not correlated to symptoms. Rare PAC's but not correlated with symptoms. 04/01/18 STRESS ECHO: Stress echocardiogram negative for inducible ischemia at 85% MPHR. RXR, chest 03-31-201803/31/18 CHEST 2 VIEW: No acute cardiopulmonary educed functional capacity. Technically difficult study with limited views. Bruno Castrejon MD [address] [place], [address], [facility] 02/08/2021 15:21:52 OBGyn Episode No OBEpisode recorded.
--- OUTSIDE RECORDS SUMMARY | 2024-03-24 06:36 | XMS_ITS | Data Portability ---
Author Organization [facility] [employer], Main Office Address [address] [place] [address] Care Team Providers Care Armhole Feller Handstitching Machine Name Role Phone CHIVO EUBANSK Primary Care Provider [phone] GRACYCHIVO OWENS Referring Provider [phone] Assessment No assessment recorded. Plan of Treatment Reminders Order Date Submit Date Provider Last Modified By Organization Details Last Modified Time Details Appointments None recorded. Lab None recorded. Referral None recorded. Procedures upper endoscopy procedure (EGD) (PROC) 2022 023 MASON Staley MD, [address], [address], [place], [address], 3 17:58:05 Surgeries None recorded. Imaging None recorded. Medication Orders None recorded. Patient TargetsNo targets recorded. Patient InstructionsNo instructions recorded. Reason for Referral None Reported. Results Created Date Observation Date Name Description Value Unit Range Abnormal Flag Note LastModifiedBy Organization Detail LastModifiedTime 02/04/20 21 XR, foot No observ ation record ed. [id number] [facility] [place] [address] [facility] [address], [place], [address], 05/24/2022 05:58:51 09/07/19 22 09/05/2021 XR, chest , 2 view No observ ation record ed. [id number] [facility] [address], [place], [address], 05/24/2022 05:58:51 02/10/20 22 02/09/2022 MAMMO , scree isabelle, digit al, bilat eral No observ ation record ed. [id number] [facility] [address], [place], [address], 05/24/2022 05:58:51 01/05/20 23 01/03/2023 upper endos copy proce dure (EGD) (PROC ) No observ ation record ed. [email or web address] [facility] [address] [facility] [address], [place], [address], 03/28/2023 16:00:54 02/13/20 23 02/12/2023 MAMMO efrain walton, digit al, bilat eral No observ ation record ed. [email or web address] Not Available 2022 12:25:52 02/14/20 23 02/12/2023 DEXA No observ ation record ed. [email or web address] [facility] [address], [place], [address], 02/27/2023 12:25:53 03/06/20 23 01/15/2023 imagi ng/di agnos tic resul t No observ ation record ed. [email or web address] [facility] [address], [place], [address], 03/07/2023 15:39:41 Result Notes None recorded. Problems Name Problem SNOMED Code Status Onset Date Resolution Date Notes Provider Name and Address Organization Details Recorded Time Metatarsal jorge a 61934449 Active 2020 Not Available [facility] 3 05:54:47 Herpes labialis 4484962 Active 2022 Not Available [facility] 3 05:54:47 Capsulitis of metatarsop halangeal joint of right foot 8214206945327 9106 Active 2020 Not Available [facility] 3 05:54:48 Gastroesop hageal reflux disease 640707190 Active 2019 Not Available [facility] 3 05:54:48 Long-term drug therapy Active 2021 Not Available [facility] 3 05:54:48 Eruption 844340841 Active 2021 Not Available [facility] 3 05:54:48 Cholestero l screening Active 2021 Not Available [facility] 3 05:54:48 Pain in right foot 9161876763710 07 Active 2020 Not Available [facility] 3 05:54:48 Tachycardi a 6893978 Active 2019 Not Available [facility] 3 05:54:48 Fracture of lower leg 679327030 Active Not Available [facility] 3 05:54:48 Cough 69531467 Active 2021 Not Available [facility] 3 05:54:48 Closed fracture of patella 29321358 Active Not Available [facility] 3 05:54:49 Intermitte nt dysphagia 35527538 Active 2022 WESTLEY Etienne [address], [address], [place], [address] , [email or web address] 3 10:11:47 Acid reflux 256009347 Active 2022 WESTLEY Etienne [address], [address], [place], [address] , [facility] 3 10:11:53 Benign essential hypertensi on 0235309 Active 2022 WESTLEY Etienne [address], [address], [place], [address] , [facility] 3 10:12:23 Notes:COVID-19 pos 05/23/22 Problem Notes None recorded. Procedures Surgical History Date Name Laterality Status Provider Name and Address Organization Details Recorded Time 11/20/19 21 Most Recent Bone Density completed Not Available [facility] 05/24/2022 05:51:58 03/26/18 90 Removal of ovarian cyst(s) completed Not Available [facility] 05/24/2022 05:51:59 Hysterectomy completed Not Available [facility] 05/24/2022 05:51:59 Imaging Results Imaging Date Name Status LastModified by Organiz ation Details LastModified Time 02/03/2021 XR, foot completed [id number].[id number] [facility] [place] [address] [facility] [address], [place], [address], 05/24/2022 05:58:51 02/09/2022 MAMMO, screening, digital, bilateral completed [id number] [facility] [address], [place], [address], 05/24/2022 05:58:51 09/05/2021 XR, chest, 2 view completed [id number] [facility] [address], [place], [address], 05/24/2022 05:58:51 01/03/2023 upper endoscopy procedure (EGD) (PROC) completed [address], [place], [address], 03/28/2023 16:00:54 02/12/2023 MAMMO, screening, digital, bilateral completed [email or web address] Information not available 02/27/2023 12:25:52 02/12/2023 DEXA completed [email or web address] [facility] [address], [place], [address], 02/27/2023 12:25:53 01/15/2023 imaging/diagno stic result completed [address], [place], [address], 03/07/2023 15:39:41 Procedure Notes None recorded. Medical Equipment None Reported. Allergies Allergen ID Allergen Name Allergen Category Reaction Reaction Severity Criticality Documentation Date Start Date Code Code System Note Provider Name and Address Organization Details Recorded Time 9978 acetamino phen / hydrocodo ne medicatio n abdominal pain Not available Not available 05/24/2022 59612 2 RxNorm Not Available [facility] 3 05:58:46 9979 morphine medicatio n Not available Not available Not available 05/24/2022 7052 RxNorm Not Available [facility] 3 05:58:46 Medications Name Sig Start Date Stop Date Status Note LastModified by Organization Details LastModified Time amoxicillin 500 mg capsule active Not Available Not Available Not Available prednisone 10 mg tablet 05/04 completed Not Available Not Available Not Available ketoconazol e 2 % shampoo APPLY TOPICALLY TO SCALP THREE TIMES WEEKLY active Not Available Not Available No t Available azithromyci n 250 mg tablet TAKE 2 TABLETS (500 MG) BY ORAL ROUTE ONCE DAILY FOR 1 DAY THEN 1 TABLET (250 MG) BY ORAL ROUTE ONCE DAILY FOR 4 DAYS 05/04 completed Not Available Not Available Not Available fluconazole 150 mg tablet 05/27 completed Not Available Not Available Not Available valacyclovi r 1 gram tablet Take 2 tablets every 12 hours by oral route as needed for 1 day. active Not Available Not Available No t Available hydrocodone 5 mg-acetamin ophen 325 mg tablet 05/27 completed Not Available Not Available Not Available famotidine 40 mg tablet TK 1 T PO QD 06/01 completed Not Available Not Available Not Available prednisone 20 mg tablet Take 2 tablets every day by oral route for 5 days. active Not Available Not Available No t Available ciprofloxac in 500 mg tablet 05/27 completed Not Available Not Available Not Available amoxicillin 500 mg tablet TAKE 1 TABLET BY MOUTH EVERY 8 HOURS UNTIL ALL TAKEN 05/17 completed Not Available Not Available Not Available prednisone 10 mg tablets in a dose pack Take 1 tab by mouth, 3 times a day for 3 daysTake 1 tab by mouth 2 times a day for 2 daysTake 1 tab by mouth once a day for 1 day 05/04 completed Not Available Not Available Not Available famotidine 20 mg tablet TAKE 1 TABLET BY MOUTH TWICE DAILY WITH MEALS active Not Available Not Available No t Available Kenalog 10 mg/mL suspension for injection In office injection administe red by the provider 05/04 completed ND: 0003- [id number]- [id number] Not Available Not Available Not Available pantoprazol e 40 mg tablet,petey yed release 05/27 completed Not Available Not Available Not Available neomycin-po lymyxin-dex ameth 3.5 mg/mL-10,00 0 unit/mL-0.1 % eye drops INT 1 DROP INTO OU QID active Not Available Not Available No t Available diclofenac sodium 75 mg tablet,petey yed release Take 1 tablet(s) 2 TIMES A DAY by oral route with food active Not Available Not Available No t Available gabapentin 100 mg capsule 05/27 completed Not Available Not Available Not Available metoprolol succinate ER 25 mg tablet,exte nded release 24 hr TAKE 1/2 TABLET BY MOUTH DAILY active Not Available Not Available No t Available clobetasol 0.05 % scalp solution 06/01 completed Not Available Not Available Not Available betamethaso ne dipropionat e 0.05 % lotion MICHAEL EXT AA BID PRF RASH TO THE TO THE SCALP RASH 06/01 completed Not Available Not Available Not Available Pneumovax-2 3 25 mcg/0.5 mL injection syringe ADM 0.5ML IM UTD 02/17 completed Not Available Not Available Not Available lidocaine (PF) 10 mg/mL (1 %) injection solution In office injection administe red by the provider 05/[address] [facility]: [phone] Not Available Not Available Not Available Fluzone High-Dose 2018- (PF) 180 mcg/0.5 mL intramuscul ar syringe ADM 0.5ML IM UTD 02/17 completed Not Available Not Available Not Available Fluzone High-Dose Quad (PF) 240 mcg/0.7 mL IM syringe ADM 0.7ML IM UTD 02/17 completed Not Available Not Available Not Available BinaxNOW COVID-19 Ag Self Test kit TEST DIRECTED TODAY 10/02 completed Not Available Not Available Not Available Vitals Date Recorded Body mass index (BMI) Body height Heart rate Body weight Systolic blood pressure Diastolic blood pressure Provider Name and Address Organization Details Last Updated DateTime 1 22 kg/m2 167.64 cm 88 /min 10005.5 6 g 120 mm[Hg] 76 mm[Hg] Not Available [facility] 3 05:54:08 Date Recorded Body mass index (BMI) Body height Oxygen saturation Oxygen saturation in Arterial blood by Pulse oximetry Heart rate Respiratory rate Body temperature Body weight Systolic blood pressure Diastolic blood pressure Provider Name and Address Organization Details Last Updated DateTime 2 22.2 kg/m2 167.64 cm 97 % 97 % 91 /min 16 /min 97.6 [degF] 65751.0 3 g 140 mm[Hg] 70 mm[Hg] Not Available [facility] 3 05:54:08 Date Recorded Body mass index (BMI) Body height Oxygen saturation Oxygen saturation in Arterial blood by Pulse oximetry Heart rate Body temperature Body weight Systolic blood pressure Diastolic blood pressure Provider Name and Address Organization Details Last Updated DateTime 2 22.5 kg/m2 167.64 cm 98 % 98 % 91 /min 97.2 [degF] 66131.4 9 g 138 mm[Hg] 74 mm[Hg] Not Available [facility] 3 05:54:08 Date Recorded Body mass index (BMI) Body height Oxygen saturation Oxygen saturation in Arterial blood by Pulse oximetry Heart rate Respiratory rate Body temperature Body weight Systolic blood pressure Diastolic blood pressure Provider Name and Address Organization Details Last Updated DateTime 3 23.9 kg/m2 167.64 cm 98 % 98 % 73 /min 16 /min 97.5 [degF] 32180.6 7 g 122 mm[Hg] 82 mm[Hg] Not Available [facility] 3 05:54:08 Date Recorded Body height Body temperature Body mass index (BMI) Body weight Respiratory rate Oxygen saturation Oxygen saturation in Arterial blood by Pulse oximetry Heart rate Systolic blood pressure Diastolic blood pressure Provider Name and Address Organization Details Last Updated DateTime 3 167.64 cm 96.5 [degF] 25.2 kg/m2 18170.4 1 g 16 /min 98 % 98 % 77 /min 128 mm[Hg] 80 mm[Hg] KENDALL Meeks [place] [facility] 3 09:54:01 Social History Question Answer Notes LastModified by Organizat ion Details LastModified Time Tobacco Smoking Status Former Smoker Not Available [facility] 05/24/2022 05:51:54 Do You Have An Advance Directive? Yes MIGRATION.05675 45236 Information not available 05/24/2022 What Is Your Level Of Alcohol Consumption? Occasional MIGRATION.39824 73624 Information not available 05/24/2022 Do You Wear A Helmet When Biking? No MIGRATION.51949 01069 Information not available 05/24/2022 Are You Blind Or Do You Have Difficulty Seeing? No MIGRATION.33561 62816 Information not available 05/24/2022 What Is Your Level Of Caffeine Consumption? Moderate MIGRATION.23055 86779 Information not available 05/24/2022 In The 14 Days Before Symptom Onset, Have You Had Close Contact With A Laboratory-confir med COVID-19 While That Case Was Ill? No MIGRATION.26334 73801 Information not available 05/24/2022 In The 14 Days Before Symptom Onset, Have You Had Close Contact With A Person Who Is Under Investigation For COVID-19 While That Person Was Ill? No MIGRATION.36820 62800 Information not available 05/24/2022 Are You Deaf Or Do You Have Serious Difficulty Hearing? No MIGRATION.45720 96136 Information not available 05/24/2022 What Type Of Diet Are You Following? 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 No MIGRATION.34839 13913 Information not available 05/24/2022 What Is The Fluoride Status Of Your Home? Unknown MIGRATION.86244 64856 Information not available 05/24/2022 Are There Any Guns Present In Your Home? Yes MIGRATION.56819 72596 Information not available 05/24/2022 Do You Use Insect Repellent Routinely? No MIGRATION.02864 13603 Information not available 05/24/2022 Where Do You Live? [place]House MIGRATION.72008 31801 Information not available 05/24/2022 Do You Have A Medical Power Of Wet Chemistry Analyst? Yes MIGRATION.45249 73793 Information not available 05/24/2022 What Was The Date Of Your Most Recent Tobacco Screening? 10/31/2021 MIGRATION.07684 63612 Information not available 05/24/2022 Do You Have Any Pets? No MIGRATION.51111 68211 Information not available 05/24/2022 What Is Your Relationship Status? MIGRATION.39037 31497 Information not available 05/24/2022 Do You Use Your Seat Belt Or Car Seat Routinely? Yes MIGRATION.15567 19175 Information not available 05/24/2022 Do You Have Smoke And Carbon Monoxide Detectors In Your Home? Yes MIGRATION.65044 92446 Information not available 05/24/2022 Are You Passively Exposed To Smoke? No MIGRATION.12526 20720 Information not available 05/24/2022 Are There Any Smokers In Your House? No MIGRATION.09446 22564 Information not available 05/24/2022 Do You Feel Stressed (tense, Restless, Nervous, Or Anxious, Or Unable To Sleep At Night)? NY3273-0 MIGRATION.84615 65907 Information not available 05/24/2022 Do You Use Any Illicit Or Recreational Drugs? No MIGRATION.47122 80104 Information not available 05/24/2022 Do You Use Sunscreen Routinely? Yes MIGRATION.39531 97416 Information not available 05/24/2022 Have You Recently Traveled Abroad? No MIGRATION.03574 15583 Information not available 05/24/2022 Do You Have Any Dietary Restrictions? No MIGRATION.89148 54540 Information not available 05/24/2022 Do You Or Have You Ever Used Any Other Forms Of Tobacco Or Nicotine? No MIGRATION.28482 55646 Information not available 05/24/2022 Sex: Unknown Functional Status Question Answer Note LastModified by Organizat ion Details LastModified Time Do you have difficulty walking or climbing stairs? No MIGRATION.1571907 026 Information not available 05/24/2022 Do you have transportation difficulties? No MIGRATION.5422702 026 Information not available 05/24/2022 Are you able to walk? YESWOREST MIGRATION.6139873 026 Information not available 05/24/2022 Do you have difficulty doing errands alone? No MIGRATION.5722377 026 Information not available 05/24/2022 Are you able to care for yourself? Yes MIGRATION.4465157 026 Information not available 05/24/2022 Do you have difficulty dressing or bathing? No MIGRATION.5181090 026 Information not available 05/24/2022 What is your exercise level? Occasional MIGRATION.5779057 026 Information not available 05/24/2022 Mental Status Question Answer Note LastModified by Organizat ion Details LastModified Time Do you have difficulty concentrating, remembering or making decisions? No MIGRATION.356447784 6 Information not available 05/24/2022 Family History Relationship Description Onset Age of this Age Resolved Age Notes LastModified by Organization Details LastModified Time Father Heart disease MIGRATION.151 [id number] Not available 05/24/2022 05:52:00 Sister Heart disease MIGRATION.586 6285002 Not available 05/24/2022 05:52:00 Sister Family history of malignant neoplasm MIGRATION.701 1152230 Not available 05/24/2022 05:52:00 Sister Essential hypertension MIGRATION.162 [id number] Not available 05/24/2022 05:52:00 Sister Malignant tumor of breast MIGRATION.439 1303704 Not available 05/24/2022 05:52:00 Mother Family history of malignant neoplasm MIGRATION.483 [id number] Not available 05/24/2022 05:52:00 Brother Family history of malignant neoplasm 3 brothe rs MIGRATION.245 8937931 Not available 05/24/2022 05:52:00 Medical History Condition Response HEARTBURN / REFLUX Y COPD Y Gynecological History Statement/Question Response Menses Monthly N Date of Last Pap 03/26/2007 Date of Last Mammogram 11/12/2019 Current Control Method Hysterectom y Most Recent Bone Density 11/19/2020 Obstetrics History GPAL:G 0 P 0 0 0 0 Immunizations Vaccine Type Date Status Note Provider Nam e and Address Organization Details Recorded Time Influenza, split virus, quadrivalent, preservative 0 completed Not Available [facility] 05/24/2022 05:58:42 influenza, unspecified formulation 9 completed Not Available [facility] 05/24/2022 05:58:42 pneumococcal polysaccharide PPV23 9 completed Not Available [facility] 05/24/2022 05:58:42 Past Encounters Encounter ID Performer Location Encounter Start Date Encounter Closed Date Diagnosis/Indication Diagnosis SNOMED-CT Code Diagnosis ICD10 Code [id number] [facility] [address] [place] [address] 11/01/2020 00:00:00 11/01/2020 13:35:41 [id number] [facility] [address] [place] [address] 12/13/2020 00:00:00 12/13/2020 10:22:34 [id number] [facility] [address] [place] [address] 02/03/2021 00:00:00 02/04/2021 07:18:10 [id number] [facility] [address] [place] [address] 05/05/2021 00:00:00 05/23/2021 17:37:56 [id number] [facility] [address] [place] [address] 10/31/2021 00:00:00 11/23/2021 09:54:12 [id number] [facility] [address] [place] [address] 05/18/2022 00:00:00 05/20/2022 17:48:31 [id number] WESTLEY Etienne [facility] [address] [place] [address] 10/02/2022 09:46:11 10/02/2022 10:38:27 Intermittent dysphagia 26221180 R13.19 Acid reflux 956138292 K2 1.9 Benign ess ential hypertension 8996188 I10 Health Concerns Section Related Observation LastModified by Organization Detai ls LastModified Time None Recorded Concern Status LastModified by Organization Details LastModified Time None Recorded Advance Directives Directive Y: Payers Encounter Date Sequence Insurance Name Policy Number Policy Anthony Covered Member ID Anthony Member ID Guarantor Name 10/02/2022 1 [place] Edita Cyr [id number] 1 Edita Cyr 10/02/2022 2 [facility] (MEDICARE SUPPLEMENT) PLAN G Edita Cyr [id number] Edita Cyr Notes Date Note Type Note Provider Name and Address Organization Details Recorded Time 2 text/html Reflux/GERDReported bypatient.Symptomsasympto matic; no difficulty swallowing; no pain swallowing; no postprandial pain Severity:same Duration:present 5 or more years Onset/Timing:gone now Context:non-smoker; no drug/alcohol abuse; no drug alcohol withdrawal; not related to food/drink Alleviating Factors:medication Associated Symptoms:no frequent coughing; no hoarseness; no food getting stuck; no belching/burping; no vomiting; not vomiting blood; no regurgitation; no shortness of breath; no chest pain; no heartburn; no difficulty swallowing; no pain when swallowing; no bad taste; no decreased appetite; no weight loss; no black/tarry stools; no fatigue; no throat pain; no dental erosion; no bloating; no early satiety; no halitosis Not Available [facility] [employer] [facility] 05/23/2021 17:37:56 2 text/html Rash/Skin LesionReported bypatient.Location:face Quality:dry;red;flaking Severity:worsening Aggravating Factors:anything touching her face. Associated Symptoms:no fever; no cold symptoms; no nausea; no vomiting; no diarrhea; no urinary symptoms; no chills; no fatigue; no change in weight Not Available [employer] [facility] [employer] [facility] 11/23/2021 09:54:12 3 text/html Reflux/GERDReported bypatient.Symptomsasympto matic; no difficulty swallowing; no pain swallowing; no postprandial pain Severity:same Duration:present 5 or more years Onset/Timing:gone now Context:non-smoker; no drug/alcohol abuse; no drug alcohol withdrawal;related to any meal Alleviating Factors:medication Aggravating Factors:worsened by food Associated Symptoms:no frequent coughing; no hoarseness; no food getting stuck; no belching/burping; no vomiting; not vomiting blood; no regurgitation; no shortness of breath; no chest pain; no heartburn; no difficulty swallowing; no pain when swallowing; no bad taste; no decreased appetite; no weight loss; no black/tarry stools; no fatigue; no dental erosion; no bloating; no early satiety; no halitosis;throat pain Not Available [employer] 05/20/2022 17:48:31 3 text/html HypertensionReported bypatient.Notes:BPs have been running higher at home. taking 1/2tab metoprolol from curatorial assistant for tachycardia hx.Reflux/GERDReported bypatient.Quality:burning ;pressure Severity:worsening Duration:present 5 or more years Onset/Timing:gone now Context:non-smoker; no drug/alcohol abuse; no drug alcohol withdrawal; not related to food/drink;related to caffeine Aggravating Factors:worsened by food;caffeine intake Associated Symptoms:no frequent coughing; no feeling of fullness/mass in throat; no hoarseness; no food getting stuck; no belching/burping; no vomiting; not vomiting blood; no regurgitation; no shortness of breath; no chest pain; no heartburn; no difficulty swallowing; no pain when swallowing; no bad taste; no decreased appetite; no weight loss; no black/tarry stools; no fatigue; no throat pain;food getting stuck WESTLEY Etienne [address] [facility] [place] [address], [place], [address], [place] [facility] 10/02/2022 10:15:53 OBGyn Episode No OBEpisode recorded.
--- OUTSIDE RECORDS SUMMARY | 2024-03-24 06:37 | XMS_ITS | Encounter Summary ---
Author Organization [facility] Address [address] [place] [address] Care Team Providers Care Machine Stemmer Name Role Phone Osorio Edgar MD Primary Care Provider + Reason for Visit * Reason Onset Date Comments Insurance Issues 10/28/2014 Encounter Details Date Type Department Care Team (Late st Contact Info) Description 10/28/2014 Telephone [facility] Minimally Invasive Gynecology [address] [place] [address] Vj Goins MD [address] [place] [address] Insurance Issues Social History Tobacco Use Types Packs/Day Years Used Date Smoking Tobacco: Former Alcohol Use Standard Drinks/Week Comments Yes 0 (1 standard drink = 0.6 oz pur e alcohol) 1/month Sex and Gender Information Value Date Recorded Sex Assigned at Not on file Gender Identity Not on file Sexual Orientation Not on file documented as of this encounter Miscellaneous Notes * Telephone Encounter - Ashley Yuan - 10/28/2014 1:53 PM CDT Pt states that Premarin Cr is even more expensive. Pharmacy has found a coupon for Estrace Cr. Pt given samples and discount card as well. If still too expensive, pt can try Osphena. Osphena discountcard given to pt too. Pt would like referral to general surgeon for eval of poss adhesions. Gave Dr Vj Knutson info topt. documented in this encounter Plan of Treatment Not on file documented as of this encounter Visit Diagnoses Not on filedocumented in this encounter Care Teams Machine Stemmer Relationship Specialty Start Date End Date Osorio Edgar MD PCP - General Internal Medicine 10/27/14 documented as of this encounter
--- OUTSIDE RECORDS SUMMARY | 2024-03-24 06:37 | XMS_ITS | Encounter Summary ---
Author Organization [employer] [facility] Address [address] [place] [address] Care Team Providers Care Wind Turbine Installer Name Role Phone Osorio Edgar MD Primary Care Provider + Encounter Details Date Type Department Care Team (Late st Contact Info) Description 04/13/2001 Outpatient Historical HIS LAB,NON-PATIENT Social History Tobacco Use Types Packs/Day Years Used Date Smoking Tobacco: Never Assessed Sex and Gender Information Value Date Recorded Sex Assigned at Not on file Gender Identity Not on file Sexual Orientation Not on file documented as of this encounter Plan of Treatment Not on file documented as of this encounter Visit Diagnoses Not on filedocumented in this encounter Care Teams Wind Turbine Installer Relationship Specialty Start Date End Date Osorio Edgar MD PCP - General Internal Medicine 10/27/14 documented as of this encounter
--- OUTSIDE RECORDS SUMMARY | 2024-03-24 06:37 | XMS_ITS | Encounter Summary ---
Author Organization [facility] Address [address] [place] [address] Care Team Providers Care Liability Claims Manager Name Role Phone Unavailable Primary Care Provider Unavailabl e Reason for Visit * Reason Onset Date Comments Other 05/14/2012 Encounter Details Date Type Department Care Team (Late st Contact Info) Description 05/14/2012 Telephone [facility] Minimally Invasive Gynecology [address] [place] [address] Vj Goins MD [address] [place] [address] Other Social History Tobacco Use Types Packs/Day Years Used Date Smoking Tobacco: Never Assessed Sex and Gender Information Value Date Recorded Sex Assigned at Not on file Gender Identity Not on file Sexual Orientation Not on file documented as of this encounter Miscellaneous Notes * Telephone Encounter - Ashley Yuan - 05/14/2012 10:59 AM CST Pt left message on [employer], has questions about pap smear and when she is due for appt. 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
--- OUTSIDE RECORDS SUMMARY | 2024-03-24 06:37 | XMS_ITS | Encounter Summary ---
Author Organization [facility] Address [address] [place] [address] Care Team Providers Care Batting Machine Operator Name Role Phone Unavailable Primary Care Provider Unavailabl e Reason for Visit * Reason Onset Date Comments Yeast Infection 07/24/2014 Encounter Details Date Type Department Care Team (Late st Contact Info) Description 07/24/2014 Telephone [facility] Minimally Invasive Gynecology [address] [place] [address] Vj Goins MD [address] [place] [address] Yeast Infection Social History Tobacco Use Types Packs/Day Years Used Date Smoking Tobacco: Never Assessed Sex and Gender Information Value Date Recorded Sex Assigned at Not on file Gender Identity Not on file Sexual Orientation Not on file documented as of this encounter Miscellaneous Notes * Telephone Encounter - Ashley Yuan - 07/24/2014 1:17 PM CDT Pt c/o yeast infection. Vaginal itching and irritation. Request Rx Diflucan. documented in this encounter Plan of Treatment Not on file documented as of this encounter Visit Diagnoses Not on filedocumented in this encounter
--- OUTSIDE RECORDS SUMMARY | 2024-03-24 06:37 | XMS_ITS | Encounter Summary ---
Author Organization [facility] Address [address] [place] [address] Care Team Providers Care Mine Deputy Name Role Phone Unavailable Primary Care Provider Unavailabl e Reason for Visit * Reason Onset Date Comments Upper Respiratory Symptoms 02/12/2012 Encounter Details Date Type Department Care Team (Late st Contact Info) Description 02/12/[address] [facility] Minimally Invasive Gynecology [address] [place] [address] Vj Goins MD [address] [place] [address] Upper Respiratory Symptoms Social History Tobacco Use Types Packs/Day Years Used Date Smoking Tobacco: Never Assessed Sex and Gender Information Value Date Recorded Sex Assigned at Not on file Gender Identity Not on file Sexual Orientation Not on file documented as of this encounter Miscellaneous Notes * Telephone Encounter - Ashley Yuan - 02/12/2012 12:56 PM CST Pt calls, c/o URI/Flu symptoms x 10 days, fever 100-101 x 3-4 days, sore throat, non productive cough, sinus congestion and drainage. Per DINO Guevara to rx Zpack. Pt notified. Increase H20, Mucinex D or DM, Tylenol or Advil for fever. Instructed pt to utilize urgent care or PCM if worsens or if fever persist. R OPERATOR documented in this encounter Plan of Treatment Not on file documented as of this encounter Visit Diagnoses Not on filedocumented in this encounter
--- OUTSIDE RECORDS SUMMARY | 2024-03-24 06:37 | XMS_ITS | Clinical Summary ---
Author Organization [facility] Address [address] [place] [address] Phone Care Team Providers Care Staffing Specialist Name Role Phone Osorio Edgar MD Primary Care Provider + Allergies Active Allergy Reactions Criticality Noted Date Comments Hydrocodone-Acetaminophen Nausea and Vomiting Low 0 06/13/2012 Milk Nausea and Vomiting Low 06/13/2012 Morphine Itching Low 10/27/2014 Medications Medication Sig Dispensed Refills Start Date End Date Status pantoprazole (PROTONIX) 40 mg Tablet, Delayed Release (E.C.) 10/13/2014 Active amoxicillin (AMOXIL) 500 mg capsule 10/19/2014 Active estradiol (ESTRACE) 0.01% (0.1 mg/g) vaginal cream Insert vaginally twice weekly. 42.5 Gram 2 10/27/2014 Active conjugated estrogens (PREMARIN) 0.625 mg/gram vaginal cream Insert 0.5 Gram vaginally twice weekly. 42.5 Gram 6 10/27/2014 Active Active Problems No known active problems Family History Medical History Relation Name Comments Cancer Brother 1 bill melanoma Cancer Brother 2 shruti oatcell Cancer Brother 3 ky liver Heart Disease Father Cancer Mother lung Cancer Sister rebecca pancreas Relation Name Status Comments Brother 1 bill Brother 2 shruti Brother 3 ky Father Mother Sister rebecca Social History Tobacco Use Types Packs/Day Years Used Date Smoking Tobacco: Former Alcohol Use Standard Drinks/Week Comments Yes 0 (1 standard drink = 0.6 oz pur e alcohol) 1/month Sex and Gender Information Value Date Recorded Sex Assigned at Not on file Gender Identity Not on file Sexual Orientation Not on file Last Filed Vital Signs Vital Sign Reading Time Taken Comments Blood Pressure 140/80 10/27/2014 10:51 AM CDT Pulse - - Temperature - - Respiratory Rate - - Oxygen Saturation - - Inhaled Oxygen Concentration - - Weight 69.9 kg (154 lb) 10/27/2014 10:51 AM CDT Height 165.1 cm (5' 5 ) 10/27/2014 10:51 AM CDT Body Mass Index 25.63 10/27/2014 10:51 AM CDT Plan of Treatment Health Maintenance Due Date Last Done Comments DTAP/TDAP/TD VACCINES (1 - Tdap) 1972 FIT-DNA Q 3 years 1998 FIT/FOBT Q 1 year 1998 Flex Sig/CT Colonography Q 5 years 1998 ZOSTER VACCINE (1 of 2) 09/11/2003 COLORECTAL SCREENING 08/02/2008 08/02/1998 Colorectal Cancer Screening 08/02/2008 BREAST CANCER SCREENING 03/26/2012 03/26/19 12 (Previously completed) OSTEOPOROSIS SCREENING 2018 PNEUMOCOCCAL VACCINE 65+ YEA RS (1 of 1 - PCV) 2018 INFLUENZA VACCINE (#1) 2023 RSV VACCINE (60+ or ) (1 - 1-dose 75+ series) 2028 Care Teams Staffing Specialist Relationship Specialty Start Date End Date Osorio Edgar MD PCP - General Internal Medicine 10/27/14
--- OUTSIDE RECORDS SUMMARY | 2024-03-24 06:37 | XMS_ITS | Encounter Summary ---
Author Organization [facility] Address [address] [place] [address] Care Team Providers Care Care Program Director Name Role Phone Osorio Edgar MD Primary Care Provider + Reason for Visit * Reason Onset Date Comments Medication Refill 10/27/2014 Encounter Details Date Type Department Care Team (Late st Contact Info) Description 10/27/2014 Refill [facility] Minimally Invasive Gynecology [address] [place] [address] Vj Goins MD [address] [place] [address] Social History Tobacco Use Types Packs/Day Years [...] * Telephone Encounter - Ashley Yuan - 10/27/2014 1:25 PM CDT Estrace Cream not covered by insurance and is >$200. Will try Premarin Cr. Pt will call back if not covered. documented in this encounter Plan of Treatment Not on file documented as of this encounter Visit Diagnoses Not on filedocumented in this encounter Care Teams Care Program Director Relationship Specialty Start Date End Date Osorio Edgar MD PCP - General Internal Medicine 10/27/14 documented as of this encounter
--- OUTSIDE RECORDS SUMMARY | 2024-03-24 06:37 | XMS_ITS | Continuity of Care Document ---
Author Organization [facility] Address [address] [place] [address] Phone Care Team Providers Care Wildlife Veterinarian Name Role Phone Sosa OD, West Unavailable Unavailable Advance Directives Directive Yes / No Effective Date File Name No Information Encounters Encounter Description Practice Location Reason(s) For Visit Diagnoses Date Provider Providers Copied on Encounter [facility], [address], [place], [place], [id number], [place] tel:[phone] [facility] No Information Jose-0 [phone] Sosa OD West. [address], [place], [address], [place]. tel:[phone] Family History Family Member Type Diagnosis Age At Onset No Information Payers Payer name Insurance type Covered alliance party ID Authoriza tion(s) No Information Social History Type Description Quantity Date Captured Comments Sex Female Smoking Status No Information Chief Complaint And Reason For Visit No Information Reason For Referral Reason For Referral No Information History Of Present Illness Encounter Date Complaint History Of Prese nt Illness No Information Functional Status Date Functional Assessmen t No Information Instructions Date Instruction Additional Infor mation No Information Assessments Type Assessment Date No Information Patient Care Teams Name Effective Dates (start - stop) Status Members No Information
--- OUTSIDE RECORDS SUMMARY | 2024-03-24 06:37 | XMS_ITS | Encounter Summary ---
Author Organization [facility] Address [address] [place] [address] Care Team Providers Care Residential Service Technician Name Role Phone Unavailable Primary Care Provider Unavailabl e Reason for Visit * Reason Comments Well Woman Exam Encounter Details Date Type Department Care Team (Late st Contact Info) Description 06/13/2012 Abstract [facility] Minimally Invasive Gynecology [address] [place] [address] Vj Goins MD [address] [place] [address] Social History Tobacco Use Types Packs/Day Years Used Date Smoking Tobacco: Never Assessed Sex and Gender Information Value Date Recorded Sex Assigned at Not on file Gender Identity Not on file Sexual Orientation Not on file documented as of this encounter Last Filed Vital Signs Vital Sign Reading Time Taken Comments Blood Pressure 114/80 10/04/2009 10:58 AM CDT Pulse - - Temperature - - Respiratory Rate - - Oxygen Saturation - - Inhaled Oxygen Concentration - - Weight 69.9 kg (154 lb) 10/04/2009 10:58 AM CDT Height - - Body Mass Index - - documented in this encounter Plan of Treatment Not on file documented as of this encounter Visit Diagnoses Not on filedocumented in this encounter
== END 2024-03-17 06:57 | disposition home or self-care (01) ==
PROVIDERS: PCP Physician Assistant; Visit Provider Nurse Practitioner Family
DX: R13.10 Dysphagia, unspecified (principal); R09.82 Postnasal drip
CPT/HCPCS: 92611

== ENCOUNTER 2024-04-14 13:56 | Outpatient (CLI) | payer MEDICARE, OTHER, SELFPAY ==
[2024-04-16 16:39] LABS: Almond (F20) IgE <0.10 kU/L; Brazil Nut (f18) <0.10 kU/L; Brazil Nut (f18) Class 0; Cashew Nut (F202) IgE <0.10 kU/L; Cashew Nut (F202) IgE Class 0; Codfish (F3) IgE <0.10 kU/L; Codfish (F3) IgE Class 0; Cow's Milk (F2) IgE <0.10 kU/L; Cow's Milk (F2) IgE Class 0; Egg White (F1) IgE <0.10 kU/L; Egg White (F1) IgE Class 0; Hazelnut (F17) IgE <0.10 kU/L; Hazelnut (F17) IgE Class 0; Macadamia Nut (rf345) <0.10 kU/L; Macadamia Nut (rf345) Class 0; Peanut (F13) IgE <0.10 kU/L; Peanut (F13) IgE Class 0; Salmon (F41) IgE <0.10 kU/L; Salmon (F41) IgE Class 0; Scallop (F338) IgE 0.11 kU/L; Scallop (F338) IgE Class 0/1; Sesame Seed <0.10 kU/L; Shrimp (F24) IgE <0.10 kU/L; Soybean (F14) IgE <0.10 kU/L; Soybean (F14) IgE Class 0; Tuna (F40) <0.10 kU/L; Tuna (F40) Class 0; Walnut (F256) IgE <0.10 kU/L; Walnut (F256) IgE Class 0; Wheat (F4) IgE <0.10 kU/L; Wheat (F4) IgE Class 0
== END 2024-04-14 13:57 | disposition home or self-care (01) ==
PROVIDERS: PCP Physician Assistant; Visit Provider Otolaryngology Otolaryngology/Facial Plastic Surgery
DX: K21.9 Gastro-esophageal reflux disease without esophagitis (principal)
CPT/HCPCS: 36415; 86003

== ENCOUNTER 2024-06-12 14:49 | Outpatient (CLI) | payer MEDICARE, OTHER, SELFPAY ==
--- NOTE | ~2024-06-12 | US_ITS ---
Left wrist ULTRASOUND (Doppler ultrasound interrogation techniques used as needed for this exam.) Ordering provider: Janna Kitchen, ANDRES History: . Other bursal cyst, unspecified wrist . Comparison: None. FINDINGS/impression: Cystic areas seen measuring 1.5 x 0.8 x 2.4 cm. This may represent ganglion cyst. Clinical correlatio n advised Reviewed, dictated and finalized at location A.
== END 2024-06-12 14:50 | disposition home or self-care (01) ==
PROVIDERS: PCP Physician Assistant; Visit Provider Physician Assistant
DX: M71.332 Other bursal cyst, left wrist (principal)
CPT/HCPCS: 76882

== ENCOUNTER 2024-12-04 09:38 | Outpatient (CLI) | payer MEDICARE, OTHER, SELFPAY ==
[2024-12-04 10:15] LABS: Hematocrit 36.6 % (37.0-47.0); Hemoglobin 11.8 g/dL (12.0-15.0); Immature Granulocyte Percent A 0.2 % (0-0.5); Lymphocytes Absolute Auto 1.22 K/mm3 (0.9-3.2); Mean Corpuscular HGB Conc 32.2 g/dl (32-36); Mean Corpuscular Hemoglobin 29.5 pg (26-34); Mean Corpuscular Volume 91.5 fl (80-100); Nucleated Red Blood Cells Absolute Auto 0.000 K/mm3 (0.0-0.012); Nucleated Red Blood Cells Perc 0.0 % (0.0-0.2); Platelet Count Result 253 k/mm3 (150-375); Red Blood Count 4.00 M/mm3 (4.2-5.4); White Blood Count 5.0 K/mm3 (4.5-10.0)
[2024-12-04 10:25] LABS: Hemoglobin A1C 5.2 % (<5.7)
--- OUTSIDE RECORDS SUMMARY | 2024-12-04 10:26 | XMS_ITS | Encounter Summary ---
Author Organization [facility] Address 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
--- OUTSIDE RECORDS SUMMARY | 2024-12-04 10:26 | XMS_ITS | Clinical Summary ---
Author Organization [facility] Address [address] [place] [address] Phone Care Team Providers Care Terrazzo Worker Apprentice Name Role Phone Osorio Edgar MD Primary Care Provider + Allergies Active Allergy Reactions Criticality Noted Date Comments Hydrocodone-Acetaminophen Nausea and Vomiting Low 0 06/13/2012 Milk Nausea and Vomiting Low 06/13/2012 Morphine Itching Low 10/27/2014 Medications pantoprazole (PROTONIX) 40 mg Tablet, Delayed Release (E.C.) 5 Active amoxicillin (AMOXIL) 500 mg capsule 5 Active estradiol (ESTRACE) 0.01% (0.1 mg/g) vaginal cream Insert vaginally twice weekly. 42.5 Gram 2 5 Active conjugated estrogens (PREMARIN) 0.625 mg/gram vaginal cream Insert 0.5 Gram vaginally twice weekly. 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 on file Not on file Not on fi le Last Filed Vital Signs Vital Sign Reading Time Taken Comments Blood Pressure 140/80 10/27/2014 10:51 AM CDT Pulse - - Temperature - - Respiratory Rate - - Oxygen Saturation - - Inhaled Oxygen Concentration - - Weight 69.9 kg (154 lb) 10/27/2014 10:51 AM CDT Height 165.1 cm (5' 5) 10/27/2014 10:51 AM CDT Body Mass Index 25.63 10/27/2014 10:51 AM CDT Plan of Treatment Health Maintenance Due Date Last Done Comments DTAP/TDAP/TD VACCINES (1 - Tdap) 1972 FIT-DNA Q 3 years 1998 FIT/FOBT Q 1 year 1998 Flex Sig/CT Colonography Q 5 years 1998 PNEUMOCOCCAL VACCINE 50+ YEA RS (1 of 1 - PCV) 09/11/2003 ZOSTER VACCINE (1 of 2) 09/11/2003 COLORECTAL SCREENING 08/02/2008 08/02/1998 Colorectal Cancer Screening 08/02/2008 BREAST CANCER SCREENING 03/26/2012 03/26/19 12 (Previously completed) OSTEOPOROSIS SCREENING 2018 INFLUENZA VACCINE (#1) 2024 RSV VACCINE (60+ or ) (1 - 1-dose 75+ series) 2028 Insurance Care Teams Terrazzo Worker Apprentice Relationship Specialty Start Date End Date Osorio Edgar MD PCP - General Internal Medicine 10/27/14
[2024-12-04 10:31] LABS: Alanine Aminotransferase 11 U/L (6-35); Albumin Level 3.8 g/dL (3.5-5.1); Alkaline Phosphatase 74 U/L (38-126); Anion Gap 4 mmol/L (4-12); Aspartate Amino Transferase 25 U/L (14-36); Bilirubin,Total 0.6 mg/dL (0.2-1.3); Blood Urea Nitrogen 13 mg/dL (7-17); Calcium 8.7 mg/dL (8.4-10.2); Carbon Dioxide 28 mmol/L (22-30); Chloride 105 mmol/L (98-107); Cholesterol 201 mg/dL (0-200); Estimated Glomerular Filt Rate 54; Glucose 88 mg/dL (65-110); HDL Direct 58 mg/dL; Potassium 4.5 mmol/L (3.4-5.0); Sodium 137 mmol/L (137-145); Total Protein 7.0 g/dL (6.3-8.2); Triglycerides 82 mg/dL (<150)
[2024-12-04 10:49] LABS: Free T4 Free Thyroxine 0.86 ng/dL (0.78-2.19)
[2024-12-04 11:06] LABS: Thyroid Stimulating Hormone 0.438 uIU/mL (0.465-4.680)
[2024-12-04 11:42] LABS: Vitamin B12 191.0 pg/mL (239-931)
== END 2024-12-04 09:39 | disposition home or self-care (01) ==
LOC: ANHLAB 09:40
PROVIDERS: PCP Internal Medicine; Visit Provider Physician Assistant
DX: Z13.220 Encounter for screening for lipoid disorders (principal); R73.09 Other abnormal glucose; R42 Dizziness and giddiness; M85.80 Other specified disorders of bone density and structure, unspecified site; Z79.899 Other long term (current) drug therapy
CPT/HCPCS: 36415; 80048; 80061; 80076; 82306; 82607; 82746; 83036; 84439; 84443; 85025

== ENCOUNTER 2025-02-16 09:51 | Outpatient (CLI) | payer MEDICARE, OTHER, SELFPAY ==
--- NOTE | ~2025-02-16 | DEXA_ITS ---
Bone Density Report Name: DWIGHT BRAUN Age: 69 Sex: Female Ethnicity: White Date of : 1955 Indication: osteopenia; height loss; prior fracture; hysterectomy; Referring Provider: CHA, CHIVO Study: Bone densitometry was performed. Exam Date: February 16, 2025 Accession number: [id number] Bone Density: Region BMD T-score Z-score Classification AP Spine(L1-L4) 0.830 -2.0 0.2 Osteopenia Femoral Neck (Left) 0.589 -2.3 -0.5 Osteopenia Total Hip (Left) 0.764 -1.5 0.1 Osteopenia Femoral Neck (Right) 0.629 -2.0 -0.1 Osteopenia Total Hip (Right) 0.745 -1.6 0.0 Osteopenia Total Hip Mean 0.755 -1.6 0.1 Osteopenia World Health Organization criteria for BMD impression classify patients as: Normal (T-score at or above -1.0), Osteopenia (T-score between -1.0 and -2.5), or Osteoporosis (T-score at or below -2.5). 10-year Fracture Risk(1): Major Osteoporotic Fracture 21% Hip Fracture 4.8% Reported Risk Factors: [place] (), Neck BMD=0.589, BMI=25.0, previous fracture (1) FRAX(R) Version 3.08. Fracture probability calculated for an untreated patient. Fracture probability may be lower if the patient has received treatment. Previous Exams: Region Exam Age BMD T-score BMD Change BMD Change Date g/cm2 vs Baseline vs Previous AP Spine (L1-L4) 02/16/2025 69 0.830 -2.0 -0.012 (-1.4%) -0.012 (-1.4%) 02/12/2023 67 0.842 -1.9 Total Hip(Left) 02/16/2025 69 0.764 -1.5 0.019 (2.5%) 0.019 (2.5%) 02/12/2023 67 0.746 -1.6 Total Hip(Right) 02/16/2025 69 0.745 -1.6 0.020 (2.8%) 0.020 (2.8%) 02/12/2023 67 0.725 -1.8 *Denotes significance at 95% confidence level, LSC for AP Spine = 0.022 g/cm2, LSC for Total Hip = 0.027 g/cm2 Clinical Information Provided by Patient: Has had a low trauma fracture Has used the following medications: Vitamin D, Calcium Has the following medical conditions: Hysterectomy Patient maximum height was 66 Menopause Age: 41 Does not regularly consume dairy products Drinks caffeinated beverages Onset of menses at age 13 Number of children 0 Impression: The patient has low bone mass, based on the Left Femoral Neck T-score. The patient has an estimated ten-year risk of hip fracture of 4.8% and an estimated ten-year risk of major fracture of 21%, based on the WHO FRAX algorithm. The patient has risk factors, including: previous fracture. No significant bone loss was observed. Discussion: BONE DENSITY IS LOW AT ONE OR MORE SKELETAL SITES. THE PATIENT'S BMD AND CLINICAL RISK FACTORS CONTRIBUTE TO THIS PATIENT'S HIGH RISK OF FRACTURE. This patient's lowest T-score is low at one or more skeletal sites. It meets the World Health Organization's (WHO) criteria for ?low bone mass? (T-score between -1.0 and -2.5). The patient's 10-year risk of hip fracture and 10 year risk of a major osteoporotic fracture as calculated by FRAX exceeds the threshold where pharmacological therapy is recommended by the National Osteoporosis Foundation (NOF). However, all treatment decisions require clinical judgment and consideration of individual patient factors, including patient preferences, comorbidities, previous drug use, risk factors not captured in the FRAX model (e.g., frailty, falls, vitamin D deficiency, increased bone turnover, interval significant decline in bone density) and possible under or overestimation of fracture risk by FRAX. The patient should follow a healthful lifestyle (good nutrition with adequate calcium and vitamin D, and appropriate weight-bearing exercise). Follow-Up: Consider a repeat BMD and Vertebral Fracture Assessment (VFA) exam in 2 years or sooner if medically necessary, to reassess this patient's status. Reported by: SELENA on 02/16/2025 10:49:00 AM. Reviewed, dictated and finalized at location A.
--- OUTSIDE RECORDS SUMMARY | 2025-02-16 11:11 | XMS_ITS | Clinical Summary ---
Author Organization [facility] [place] Address [facility] [place] [address] Care Team Providers Care Clinical Office Technician Name Role Phone Janna Kitchen Primary Care Pr ovider Encounters Date Type Department Care Team Description 01/15/2025 2:17 PM CDT - 01/15/2025 11:59 PM CDT Hospital Encounter [facility] MRI [address] [place], [place] [id number] Dizziness and giddiness Discharge Disposition: Discharge to home or self care from Last 3 Months Social History Tobacco Use Types Packs/Day Years Used Date Smoking Tobacco: Never Assessed Comments Unknown Sex and Gender Information Value Date Recorded Sex Assigned at Not on file Legal Sex Female 2:42 AM CHEMICAL LAB TECHNICIAN Gender Identity Not on file Sexual Orientation Not on file Plan of Treatment Health Maintenance Due Date Last Done Comments Breast Cancer Screening-Mammogram 1955 Colon Cancer Screening-Colonoscopy 1955 Depression Screening 1955 Fall Risk Assessment 1955 Hepatitis C Screening 1955 Osteoporosis Screening-Bone Density Scan 1955 DTaP/Tdap/Td Vaccine (1 - Tdap) 1964 Hepatitis B Screening 09/11/1971 Zoster Vaccine (1 of 2) 09/11/2003 Well Visit 65+ 2018 Covid-19 Vaccine (2024-2 6 season) 2024 02/04/2023, 01/19/2022, 07/16/2021, Additional history exists Influenza Vaccine Completed 12/03/2024, , 01/19/2022, Additional history exists Pneumococcal vaccine 65+ Completed 025, 11/22/2023, 12/20/2018 Procedures Procedure Name Priority Date/Time Associated Diagnosis Comments MRI BRAIN W WO CONTRAST Schedule Routine, Read Routine (OP Routine) 01/15/2025 3:40 PM CDT Dizziness and giddiness from Last 3 Months Results * MRI Brain W WO Contrast (01/15/2025 3:40 PM CDT) Anatomical Region Laterality Modality Head and Neck N/A Magnetic Resonan ce 01/15/2025 4:39 PM CDT Impressions 01/15/2025 4:39 PM CDT No acute infarct. No focal cerebral lesion. Exam mildly limited by motion artifact. Scattered small foci of T2 hyperintensity within the periventricular and subcortical white matter. Changes are nonspecific but are most likely microvascular related. Differential considerations however include post infectious-inflammatory processes, demyelinating processes, and long-standing migraine headaches as well as multiple other etiologies. Please correlate with clinical features. . Electronically signed by: Tracy Combs M.D. Narrative 01/15/2025 4:39 PM CDT EXAMINATION: Magnetic resonance imaging (MRI) of the brain and brainstem without and with contrast HISTORY: Ongoing Dizziness and lightheadedness, with some improvement recently coincident with decreasing allergy medicine. TECHNIQUE: Multiplanar multi-weighted MRI of the brain and brainstem was performed without and with intravenous contrast using the general brain protocol. Contrast information: Contrast was administered. COMPARISON: None Available. FINDINGS: Examination is moderately compromised by excessive patient motion artifact. Within the limitation, The scalp and calvarium are normal. Incidental tiny epidermoid cyst in the scalp soft tissues posteriorly on the left. The superior sagittal sinus demonstrates normal venous flow. The corpus callosum is normal in shape and signal intensity. The posterior fossa is unremarkable. Tonsils project at the upper margin of foramen magnum. The pituitary and sella are normal. The brainstem and craniocervical junction are unremarkable. There are a few scattered punctate and patchy areas of T2 hyperintensity in the periventricular and subcortical white matter. The largest focus is in the posterior lateral right frontal lobe measuring 7 mm. Findings are nonspecific. Diffusion weighted images reveal no hyperintensities to suggest acute cerebral infarct. Blood sensitive T2 gradient coronal images do not clearly demonstrate susceptibility artifact. The ventricles are normal in size and position without evidence of hydrocephalus. The paranasal sinuses are normal. The visualized portions of the mastoids are unremarkable. The orbits appear normal. Normal flow voids are demonstrated in the carotid arteries and basilar artery. There is no abnormal contrast enhancement. Procedure Note Tracy Combs MD - 01/15/2025 EXAMINATION: Magnetic resonance imaging (MRI) of the brain and brainstem without and with contrast HISTORY: Ongoing Dizziness and lightheadedness, with some improvement recently coincident with decreasing allergy medicine. TECHNIQUE: Multiplanar multi-weighted MRI of the brain and brainstem was performed without and with intravenous contrast using the general brain protocol. Contrast information: Contrast was administered. COMPARISON: None Available. FINDINGS: Examination is moderately compromised by excessive patient motion artifact. Within the limitation, The scalp and calvarium are normal. Incidental tiny epidermoid cyst in the scalp soft tissues posteriorly on the left. The superior sagittal sinus demonstrates normal venous flow. The corpus callosum is normal in shape and signal intensity. The posterior fossa is unremarkable. Tonsils project at the upper margin of foramen magnum. The pituitary and sella are normal. The brainstem and craniocervical junction are unremarkable. There are a few scattered punctate and patchy areas of T2 hyperintensity in the periventricular and subcortical white matter. The largest focus is in the posterior lateral right frontal lobe measuring 7 mm. Findings are nonspecific. Diffusion weighted images reveal no hyperintensities to suggest acute cerebral infarct. Blood sensitive T2 gradient coronal images do not clearly demonstrate susceptibility artifact. The ventricles are normal in size and position without evidence of hydrocephalus. The paranasal sinuses are normal. The visualized portions of the mastoids are unremarkable. The orbits appear normal. Normal flow voids are demonstrated in the carotid arteries and basilar artery. There is no abnormal contrast enhancement. IMPRESSION: No acute infarct. No focal cerebral lesion. Exam mildly limited by motion artifact. Scattered small foci of T2 hyperintensity within the periventricular and subcortical white matter. Changes are nonspecific but are most likely microvascular related. Differential considerations however include post infectious-inflammatory processes, demyelinating processes, and long-standing migraine headaches as well as multiple other etiologies. Please correlate with clinical features. . Electronically signed by: Tracy Combs M.D. Janna CHRISTY IMG MRI PROCEDUR ES Final Result from Last 3 Months Insurance MEDICARE [facility] Care Teams Clinical Office Technician Relationship Specialty Start Date End Date Janna Kitchen PA [address] [place] [id number] PCP - General Physician Pharmacy Account Director 12/15/24
--- OUTSIDE RECORDS SUMMARY | 2025-02-16 11:11 | XMS_ITS | Clinical Summary ---
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
--- OUTSIDE RECORDS SUMMARY | 2025-02-16 11:11 | XMS_ITS | Encounter Summary ---
Author Organization [facility] Address 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
== END 2025-02-16 09:52 | disposition home or self-care (01) ==
LOC: ANHFOHIMG 09:52
PROVIDERS: PCP Physician Assistant; Visit Provider Physician Assistant
DX: M85.88 Other specified disorders of bone density and structure, other site (principal); M85.852 Other specified disorders of bone density and structure, left thigh; M85.851 Other specified disorders of bone density and structure, right thigh
CPT/HCPCS: 77080

== ENCOUNTER 2025-02-17 11:26 | Outpatient (CLI) | payer MEDICARE, OTHER, SELFPAY ==
--- NOTE | ~2025-02-17 | MM_ITS ---
EXAMINATION: MM screening norman BI w vida HISTORY: Screening TECHNIQUE: Craniocaudal and mediolateral oblique 3-D tomosynthesis images were obtained and synthetic 2-D images were generated. CAD analysis was submitted and interpreted. COMPARISON: Comparison to multiple prior studies sequentially, with oldest reviewed study dated 10/25/2018. BREAST PARENCHYMAL COMPOSITION: Not Dense: The breasts are almost entirely fatty. FINDINGS: There is no evidence of suspicious mass, calcification, or architectural distortion to suggest malignancy in either breast. There has been no suspicious interval change. IMPRESSION: 1. No mammographic evidence of malignancy. 2. Recommend routine screening mammography in one year. BI-RADS Category 1: Negative Reviewed, dictated and finalized at location O. 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
== END 2025-02-17 11:27 | disposition home or self-care (01) ==
PROVIDERS: PCP Physician Assistant; Visit Provider Physician Assistant
DX: Z12.31 Encounter for screening mammogram for malignant neoplasm of breast (principal)
CPT/HCPCS: 77063; 77067